=== PATIENT | female | born 1990 | race Caucasian/White ===

== ENCOUNTER 2016-05-07 20:23 | Emergency (ER) | payer OTHER ==
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
--- NOTE | 2016-05-07 21:21 | XR ---
EXAMINATION TYPE: XR lumbosacral spine min 4V DATE OF EXAM: 05/07/2016 9:03 PM COMPARISON: None HISTORY: Low back pain TECHNIQUE: 5 views FINDINGS: The lumbar vertebra have normal spacing and alignment. Posterior elements are intact. Sacro iliac joints are normal. IMPRESSION: Normal lumbar spine.
[2016-05-07] MEDS ORDERED: HYDROcodone/APAP 5-325MG 1 EACH TAB PO STA (21:28)
[2016-05-07 21:47] VITALS: BP 126/66; PULSE 82; RESP 16; TEMP 98
== END 2016-05-07 21:47 | disposition home or self-care (01) ==
LOC: EC 20:23
DX: S09.90XA Unspecified injury of head, initial encounter (principal); S79.922A Unspecified injury of left thigh, initial encounter; M54.2 Cervicalgia; S49.92XA Unspecified injury of left shoulder and upper arm, initial encounter; S39.92XA Unspecified injury of lower back, initial encounter; R51 Headache; E03.9 Hypothyroidism, unspecified; F17.200 Nicotine dependence, unspecified, uncomplicated; F32.9 Major depressive disorder, single episode, unspecified; Z88.0 Allergy status to penicillin; Z88.1 Allergy status to other antibiotic agents; F41.9 Anxiety disorder, unspecified; Z79.899 Other long term (current) drug therapy; Y92.410 Unspecified street and highway as the place of occurrence of the external cause; V47.5XXA Car driver injured in collision with fixed or stationary object in traffic accident, initial encounter
CPT/HCPCS: 70450; 72110; 72125; 99284

== ENCOUNTER → 2017-07-09 | Outpatient (CLI) | payer OTHER ==
--- NOTE | 2017-07-10 09:10 | US ---
EXAMINATION TYPE: US thyroid st tissue head/neck DATE OF EXAM: 07/09/2017 COMPARISON: NONE CLINICAL HISTORY: E03.9 Hyperthyroidism. Hyperthyroidism GLAND SIZE: Right Lobe: 4.7 x 1.4 x 1.8 cm Overall Parenchyma: heterogenous Left Lobe: 4.4 x 1.3 x 1.5 cm Overall Parenchyma: heterogeneous Isthmus Thickness: 0.4 cm NODULES RIGHT: # of nodules measured on right: 0 LEFT: # of nodules measured on left: 0 ISTHMUS: # of nodules measured in the isthmus: 0 Bilateral neck scanned, left neck: wnl, right neck: 2.6 x 0.4 x 1.6cm hypoechoic vascular structure, possible lymph node. Diffusely heterogeneous thyroid without any definite well defined nodules seen at this time. IMPRESSION: Correlate for thyroiditis.
== END | disposition home or self-care (01) ==
LOC: RADUSWWP 14:59
PROVIDERS: ATTEND Family Medicine
DX: E03.9 Hypothyroidism, unspecified (principal); Z88.0 Allergy status to penicillin; Z88.1 Allergy status to other antibiotic agents; Z88.8 Allergy status to other drugs, medicaments and biological substances
CPT/HCPCS: 76536

== ENCOUNTER 2019-06-24 09:04 | Emergency (ER) | payer OTHER ==
[2019-06-24 09:38] VITALS: BP 113/73; PULSE 69; RESP 16; TEMP 98.5
[2019-06-24] MEDS ORDERED: CYCLOBENZAPRINE 5 MG TAB PO STA (09:48)
[2019-06-24] MEDS ORDERED: HYDROcodone/APAP 5-325MG 1 EACH TAB PO STA (09:48)
[2019-06-24] MEDS ORDERED: ACET/COD 300 MG/30 MG STARTER PACK 6 TAB BTL PO STA (09:48)
--- NOTE | 2019-06-24 09:49 | ED ---
Neck Injury/Pain HPI - General Chief Complaint: Neck Pain/Injury Stated Complaint: Neck stiffness Time Seen by Provider: 06/24/19 09:36 Source: patient, RN notes reviewed Mode of arrival: ambulatory Limitations: no limitations - History of Present Illness Initial Comments: 28-year-old female presents emergency Department chief complaint left-sided neck pain. Patient states she thought she slept wrong and woke up this pain. Patient states pain is worse when she twists or turns away. Patient states she has not had any weakness or paresthesias of her upper extremity no chest pain or shortness breath. Patient has no relief with massage this morning. She did not apply any heat on it. Patient offers no other complaints. Denies trauma. - Related Data Home Medications Medication Instructions Recorded Confirmed Sertraline [Zoloft] 75 mg PO DAILY 10/25/15 05/07/16 Acetaminophen Tab [Tylenol Tab] 500 mg PO Q6H PRN 05/07/16 05/07/16 Albuterol Inhaler [Ventolin Hfa 2 puff INHALATION RT-Q6H PRN 05/07/16 05/07/16 Inhaler] Ibuprofen [Motrin] 800 mg PO Q8HR PRN 05/07/16 05/07/16 Levothyroxine Sodium [Synthroid] 50 mcg PO DAILY 05/07/16 05/07/16 Previous Rx's Medication Instructions Recorded Hydrocodone/Acetaminophen [[place] 1 tab PO Q6HR PRN #15 tab 05/07/16 5-325] Cyclobenzaprine [Flexeril] 10 mg PO TID PRN #15 tab 06/24/19 Ibuprofen [Motrin] 600 mg PO Q8HR PRN #20 tab 06/24/19 Allergies Allergy/AdvReac Type Severity Reaction Status Date / Time ciprofloxacin [From Cipro] Allergy Severe Rash/Hives Verified 06/24/19 09:18 Penicillins Allergy Severe Anaphylaxis Verified 06/24/19 09:18 Review of Systems ROS Statement: Those systems with pertinent positive or pertinent negative responses have been documented in the HPI. ROS Other: All systems not noted in ROS Statement are negative. Past Medical History Past Medical History: GERD/Reflux Additional Past Medical History / Comment(s): Hypothroidism, patient had benign sinus tachycardia evaluated by cardiology during past History of Any Multi-Drug Resistant Organisms: None Reported Past Surgical History: Section Additional Past Surgical History / Comment(s): Dand C 2010 Past Anesthesia/Blood Transfusion Reactions: No Reported Reaction Past Psychological History: Anxiety, Depression Smoking Status: Former smoker Past Alcohol Use History: None Reported Past Drug Use History: None Reported - Past Family History Mother Additional Family Medical History / Comment(s): Type II Diabetes General Exam Limitations: no limitations General appearance: alert, in no apparent distress Head exam: Present: atraumatic, normocephalic, normal inspection Eye exam: Present: normal appearance, PERRL, EOMI. Absent: scleral icterus, conjunctival injection, periorbital swelling ENT exam: Present: normal exam, normal oropharynx, mucous membranes moist, TM's normal bilaterally, normal external ear exam Neck exam: Present: normal inspection, tenderness (Over the left trapezius, cervical paraspinal), full ROM (Patient has full range of motion but reports significant pain on the left side of her neck). Absent: meningismus, lymphadenopathy Respiratory exam: Present: normal lung sounds bilaterally. Absent: respiratory distress, wheezes, rales, rhonchi, stridor Cardiovascular Exam: Present: regular rate, normal rhythm, normal heart sounds. Absent: systolic murmur, diastolic murmur, rubs, gallop, clicks Course Vital Signs 06/24/19 09:15 Temperature 98.5 F Pulse Rate 69 Respiratory 16 Rate Blood Pressure 113/73 O2 Sat by Pulse 98 Oximetry Medical Decision Making - Medical Decision Making Patient has cervical paraspinal muscle spasm, tenderness. This is related to spasm or torticollis. Patient will provide pain control anti-inflammatories. Return parameters were discussed she has neurovascular intact. Disposition Clinical Impression: Spastic torticollis Disposition: HOME SELF-CARE Condition: Stable Instructions (If sedation given, give patient instructions): Acute Neck Pain (E D) Additional Instructions: Please return to the Emergency Department if symptoms worsen or any other concerns. Prescriptions: Cyclobenzaprine [Flexeril] 10 mg PO TID PRN #15 tab PRN Reason: Muscle Spasm Ibuprofen [Motrin] 600 mg PO Q8HR PRN #20 tab PRN Reason: Pain Is patient prescribed a controlled substance at d/c from ED?: No Referrals: Shaji Gonzalez MD [Primary Care Provider] - 1-2 days Time of Disposition: 09:49
== END 2019-06-24 10:10 | disposition home or self-care (01) ==
LOC: EC 09:04
DX: M43.6 Torticollis (principal); F41.9 Anxiety disorder, unspecified; E03.9 Hypothyroidism, unspecified; F32.9 Major depressive disorder, single episode, unspecified; Z79.890 Hormone replacement therapy; Z79.899 Other long term (current) drug therapy; Z88.0 Allergy status to penicillin; Z88.1 Allergy status to other antibiotic agents; Z87.891 Personal history of nicotine dependence
CPT/HCPCS: 99283

== ENCOUNTER → 2019-08-18 | Outpatient (CLI) | payer OTHER ==
--- NOTE | 2019-08-19 10:40 | USB ---
Reason for exam: clinical finding. History: Taking hormonal contraceptives for 3 years beginning at age 25. Indicated problem(s): lump or thickening in the right breast. Physical Findings: Nurse Summary: 3cm nodule in the right breast at 9 o'clock (nurse mj). US Breast RT Technologist: Morelia Campo Right complete breast ultrasound includes all four quadrants, the retroareolar region and axilla. Finding demonstrates a 4.5 x 4.1 x 1.7cm irregular, spiculated, mixed, vascular lesion at 9 o'clock, prominent right axillary nodes, resolving phlegmon of prior abscess versus solid neoplasm. Biopsy recommended. Mammogram at this time was deferred until pathology results due to Covid pandemic. If pathology of infection no mammogram needed. If neoplasm mammogram will be performed. These results were verbally communicated with the patient and result sheet given to the patient on 08/18/19. ASSESSMENT: Suspicious, BI-RAD 4 RECOMMENDATION: Ultrasound core biopsy of the right breast. Called Dr. Gonzalez's office with mammographic findings and has scheduled an appointment for the patient for 09/02/19 at 12:[address] Adrian. Biopsy scheduled for 08/25/19 at 11:00. PRELIMINARY REPORT CALLED AND FAXED TO DR. ADRIAN ON 08/18/19.
== END | disposition home or self-care (01) ==
LOC: RADMAMWWP 08:38
PROVIDERS: ATTEND Family Medicine
DX: N63.10 Unspecified lump in the right breast, unspecified quadrant (principal)

== ENCOUNTER → 2019-08-25 | Day surgery (SDC) | payer OTHER ==
[2019-08-25 10:43] VITALS: RESP 16
[2019-08-25 11:48] VITALS: BP 103/67; PULSE 76; TEMP 98.3
--- NOTE | 2019-08-25 11:56 | USB ---
EXAMINATION TYPE: US biopsy breast VAD RT DATE OF EXAM: 08/25/2019 CLINICAL HISTORY: R92.8 ABNORMAL MAMMOGRAM. TECHNIQUE: Ultrasound guided core biopsy of right breast. COMPARISON: Right breast ultrasound dated 08/18/2019 FINDINGS: The procedure of ultrasound guided core biopsy was explained to the patient. Benefits, alt ernatives, and risks were discussed. An informed consent was then obtained. Preprocedural timeout w as performed. The patient was placed in supine positioning for imaging and for the procedure. The overlying skin w as prepped and draped in usual sterile fashion. 10 cc of 1% lidocaine was used as anesthetic into the skin and subcutaneous tissue up to the 4.5 cm irregular mass at the 9:00 position in the right breas t. Under ultrasound guidance, a 12-gauge vacuum assisted biopsy gun device was used to obtain 7 core [address]es. Following this, a coil-shaped biopsy marker was left at the site of biopsy. No postprocedure mammogram was performed given the patient's age, COVID pandemic, and the possibility of infectious et iology of the mass. The patient tolerated the procedure well without any immediate complication. The patient was kept in the radiology department for short stay after the procedure and then discharged home in stable condi tion. IMPRESSION: Successful, uncomplicated ultrasound guided core biopsy and irregular mass at the 9:00 po sition in the right breast, full pathology results to follow. The mass did appear to contain less flu id than on the original exam of 08/10/2019, however biopsy was performed to exclude lobular or inflamm atory breast cancer given the focal palpable abnormality and firmness of the mass. Axillary biopsy wa s deferred. If pathology is positive biopsy of the axillary lymph node could be considered.
== END ==
LOC: RADUSWWP 10:12
PROVIDERS: ATTEND Surgery
DX: N60.31 Fibrosclerosis of right breast (principal); N61.0 Mastitis without abscess; Z11.59 Encounter for screening for other viral diseases
CPT/HCPCS: 88305; 87635; 19083; A4648; J2001

== ENCOUNTER → 2020-02-29 | Outpatient (CLI) | payer OTHER ==
--- NOTE | 2020-02-29 09:56 | USB ---
Reason for exam: follow-up at short interval from prior study. History: Benign US biopsy breast VAD RT of the right breast, August 25, 2019. Taking hormonal contraceptives for 3 years beginning at age 25. Physical Findings: Nurse did not find any significant physical abnormalities on exam. US Breast Limited RT Right limited breast ultrasound including focal area of concern, retroareolar and axilla demonstrates no cystic or solid lesion seen. These results were verbally communicated with the patient and result sheet given to the patient on 02/29/20. ASSESSMENT: Negative, BI-RAD 1 RECOMMENDATION: Routine screening mammogram of both breasts at age 42.
== END | disposition home or self-care (01) ==
LOC: RADUSWWP 08:44
PROVIDERS: ATTEND Family Medicine
DX: R92.8 Other abnormal and inconclusive findings on diagnostic imaging of breast (principal)

== ENCOUNTER 2020-06-25 19:42 | Inpatient (IN) | payer MEDICAID, OTHER ==
--- NOTE | 2020-06-25 19:59 | ED ---
Psych HPI - General Chief Complaint: Psychiatric Symptoms Stated Complaint: Mental Health Time Seen by Provider: 06/25/20 19:51 Source: patient, RN notes reviewed Mode of arrival: ambulatory - History of Present Illness Initial Comments: Patient is a 29-year-old female that presents to the emergency department with her mother complaining of suicidal ideations with potential plans. She did note that she called [facility] and instructed to emergency department to get evaluated. Patient was very short words appeared to be in inner turmoil in distress. She noted that lately she has been having more suicidal thoughts and more plans. She did not want to discuss her plans at that time and wants to talk to the psych nurse. She denied any other issues or pain area and she denied any chest pain shortness of breath headache nausea vomiting diarrhea constipation fever fatigue chills. - Related Data Home Medications Medication Instructions Recorded Confirmed Acetaminophen Tab [Tylenol] 1,000 mg PO DAILY PRN 06/25/20 06/25/20 Allergies Allergy/AdvReac Type Severity Reaction Status Date / Time ciprofloxacin [From Cipro] Allergy Severe Rash/Hives Verified 06/25/20 21:59 Penicillins Allergy Severe Anaphylaxis Verified 06/25/20 21:59 Review of Systems ROS Statement: Those systems with pertinent positive or pertinent negative responses have been documented in the HPI. ROS Other: All systems not noted in ROS Statement are negative. Past Medical History Past Medical History: GERD/Reflux Additional Past Medical History / Comment(s): Hypothroidism, patient had benign sinus tachycardia evaluated by cardiology during past , History of Any Multi-Drug Resistant Organisms: None Reported Past Surgical History: Section Additional Past Surgical History / Comment(s): D-and C 2010 Past Anesthesia/Blood Transfusion Reactions: No Reported Reaction Past Psychological History: Anxiety, Depression Smoking Status: Current every day smoker Past Alcohol Use History: None Reported Past Drug Use History: Marijuana - Past Family History Mother Additional Family Medical History / Comment(s): Type II Diabetes General Exam Limitations: no limitations General appearance: alert, in distress Head exam: Present: atraumatic, normocephalic, normal inspection Eye exam: Present: normal appearance, PERRL, EOMI. Absent: scleral icterus, conjunctival injection, periorbital swelling Neck exam: Present: normal inspection. Absent: tenderness, meningismus, lymphadenopathy Respiratory exam: Present: normal lung sounds bilaterally. Absent: respiratory distress, wheezes, rales, rhonchi, stridor Cardiovascular Exam: Present: regular rate, normal rhythm, normal heart sounds. Absent: systolic murmur, diastolic murmur, rubs, gallop, clicks GI/Abdominal exam: Present: soft, normal bowel sounds. Absent: distended, tenderness, guarding, rebound, rigid Extremities exam: Present: normal inspection, full ROM, normal capillary refill. Absent: tenderness, pedal edema, joint swelling, calf tenderness Back exam: Present: normal inspection Neurological exam: Present: alert, oriented X3, CN II-XII intact Psychiatric exam: Present: normal affect, depressed, suicidal ideation (With pl an) Skin exam: Present: warm, dry, intact, normal color. Absent: rash Course Vital Signs 06/25/20 19:43 Temperature 99.0 F Pulse Rate 112 H Respiratory 18 Rate Blood Pressure 131/83 O2 Sat by Pulse 98 Oximetry Medical Decision Making - Medical Decision Making 29-year-old female presents immersed with suicidal ideations and possible plan. Labs ordered. Consult EPS. Breath alcohol level came back negative, patient is cleared for psych consult. Case discussed with Dr. Silverio - Lab Data Lab Results 06/25/20 06/25/20 Range/Units 20:10 20:10 Urine HCG, Qual Not Detected (Not Detectd) Urine Opiates Screen Not Detected (NotDetected) Ur Oxycodone Screen Not Detected (NotDetected) Urine Methadone Screen Not Detected (NotDetected) Ur Propoxyphene Screen Not Detected (NotDetected) Ur Barbiturates Screen Not Detected (NotDetected) U Tricyclic Antidepress Not Detected (NotDetected) Ur Phencyclidine Scrn Not Detected (NotDetected) Ur Amphetamines Screen Not Detected (NotDetected) U Methamphetamines Scrn Not Detected (NotDetected) U Benzodiazepines Scrn Detected H (NotDetected) Urine Cocaine Screen Not Detected (NotDetected) U Marijuana (THC) Screen Detected H (NotDetected) Disposition Clinical Impression: Suicidal ideation Disposition: ADMITTED IP TO THIS [facility] Condition: Stable Is patient prescribed a controlled substance at d/c from ED?: No Referrals: Shaji Gonzalez MD [Primary Care Provider] - 1-2 days Time of Disposition: 22:28
[2020-06-25 21:14] LABS: Amphetamine Screen,Urine Not Detected (NotDetected); Barbiturate Screen,Urine Not Detected (NotDetected); Benzodiazepines Screen,Urine Detected (NotDetected); Cocaine Screen,Urine Not Detected (NotDetected); Methadone Screen, Urine Not Detected (NotDetected); Opiate Screen,Urine Not Detected (NotDetected); Oxycodone Screen, Urine Not Detected (NotDetected); Phencyclidine Screen,Urine Not Detected (NotDetected); Tricyclic Antidepressant,Urine Not Detected (NotDetected); Urn Cannabinoid Scrn Detected (NotDetected)
[2020-06-25] MEDS ORDERED: ACETAMINOPHEN TAB 500 MG TAB PO STA (22:27)
[2020-06-26] MEDS ORDERED: MAGNESIUM HYDROXIDE 2,400 MG/10 ML CUP PO PRN (03:08)
[2020-06-26] MEDS ORDERED: LORazepam 1 MG TAB PO PRN (03:08)
[2020-06-26] MEDS ORDERED: LORazepam 2 MG/ML INJ IM PRN (03:13)
[2020-06-26] MEDS ORDERED: HALOPERIDOL LACTATE 5 MG/ML 1 ML VIAL IM PRN (03:14)
[2020-06-26] MEDS ORDERED: MAG HYDROX/AL HYDROX/SIMETH 30 ML CUP PO PRN (04:00)
[2020-06-26] MEDS ORDERED: haloperidoL 5 MG TAB PO PRN (04:00)
[2020-06-26] MEDS: NICOTINE 14MG/24HR PATCH TRANSDERM SCH (09:22)
--- NOTE | 2020-06-26 12:20 | P.HP ---
Psychiatric H&P - . H&P Date: 06/26/20 History & Physical: IDENTIFYING DATA: The patient is a 29-year-old single female admitted psychiatric unit voluntarily with complaints of increased depression and suicidal ideation. HISTORY OF PRESENT ILLNESS: I reviewed the medical record and interviewed the patient. She described a history of depression that has been present intermittently since she was an adolescent. She became acutely distressed the week prior to admission following a visit by a CPS worker for a report that she had attempted suicide. She vehemently denied that she had attempted suicide but admitted that she has had occasional thoughts of suicide. The CPS worker recommended that she contact [facility] for outpatient mental health services. She called the mental health and during the telephone intake on Saturday prior to admission she became acutely distressed. The family day care worker recommended that she presented to the hospital for treatment. She acknowledged that she has felt depressed and was having thoughts of suicide prior to the visit by CPS. In retrospect she now recognizes that the depression was worse than she had thought. She described, in addition to depressed feelings, anhedonia, anergy, poor appetite, persistent and uncontrolled worry and impaired sleep. She denied that she had suicidal intent or made suicidal plan. She denied a history of suicide attempts or gestures. She attributes depression to multiple social issues. 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 She lost her job just prior to the beginning of the pandemic and has been housebound with her 2 young children since. She receives child support from her ex-boyfriend for only one of his two children. She feels isolated and alone. She denied a history of elevated mood or sustained irritability suggestive of faiza or hypomania. She described fluctuating levels of anxiety at times overwhelming and uncontrollable. She denied experiencing periods of increased anxiety suggestive of panic attack. She denied obsessions or compulsions. She denied experiencing such psychotic symptoms as hallucinations, paranoia or confusion. She smokes marijuana but denied use of drugs or alcohol. She denied that friends and family have complained to her about her alcohol or drug use. PAST PSYCHIATRIC HISTORY: She has no prior psychiatric hospitalizations. Her mother referred her for mental health services when she was in the adolescent following her parents divorce. She met with a counselor briefly but felt she did not benefit from treatment because she was "too young." Her primary care provider prescribed several antidepressants including Celexa, Lexapro, Zoloft and Wellbutrin. PAST MEDICAL HISTORY: She has no major medical problems. ALLERGIES: Ciprofloxacin, penicillins SUBSTANCE USE HISTORY: She denied a history of substance use problems. She has never been a substance abuse treatment program. FAMILY PSYCHIATRIC/SUBSTANCE USE HISTORY: Her mother has a history of depression treated with antidepressants. LEGAL HISTORY: Denied SOCIAL HISTORY: She is more intact family. Her parents when she was in eighth or ninth grade. She from her long-term boyfriend. They have 2 children together. She is currently unemployed and receives child support payments from her ex are 1 to children. She lives in subsidized housing and has assistance with utilities. MENTAL STATUS EXAM: She presented as a casually groomed young female with red hair. She made eye contact and attended the interview. She had no distinction features are prominent physical abnormalities. She had a distressed facial expression cried intermittently throughout the interview. She is alert and oriented to person, place and time. She had slight psychomotor retardation but no abnormal involuntary movements. Her speech was spontaneous and consistent with her mood. She had no articulation difficulties. Her affect was depressed and not reactive. She denied current suicidal ideation or wishes. She denied homicidal ideation. She expressed depressive cognitions such as hopelessness, helplessness but denied feeling worthless. She ruminated about her social problems. She did not express ideas reference, paranoia phobias, paranoid ideation or delusions. Her thinking was abstract and associations were coherent, logical and goal directed. She denied hallucinations did not appear to responding to internal stimuli. Global impression of intellect was average. She is aware of her illness and for treatment. STRENGTHS: Good physical health, supportive family, stable housing, stable income WEAKNESSES: Chronic depression, lack of employment IMPRESSION: She is a 29-year-old single female who is a mother of 2 children. [facility] complaints of depression and suicidal ideation. She described a history of depression beginning in adolescence following divorce her parents. She he has received mental health services as an adolescent but not as an adult. He been treated with several antidepressants prescribed by her primary care provider with limited benefit. In addition to depressive symptoms she has free-floating anxiety appears no evidence of psychosis and no history of faiza or hypomania. She should be treated inpatient basis with combination of psychopharmacology and multimodal therapy. PRINCIPLE DIAGNOSIS: Major depressive disorder severe without psychotic features, rule out resistant depressive disorder, cannabis use RECOMMENDATION: Admit to the psychiatric unit. Suicide precautions. Consult medicine for initial physical exam and medical history. shut off worker completed initial psychosocial assessment and coordinate discharge and aftercare. Begin Effexor XR 37.5 mg daily and titrated according to clinical response and tolera nce. Abilify 1 mg at bedtime and titrated according to clinical response and tolerance for augmentation of the antidepressant. Encourage participation in therapeutic groups and activities. Evaluate clinical status response to treatment daily basis. Refer for outpatient mental health services including individual psychotherapy after discharge. Allergies Allergy/AdvReac Type Severity Reaction Status Date / Time ciprofloxacin [From Cipro] Allergy Severe Rash/Hives Verified 06/25/20 21:59 Penicillins Allergy Severe Anaphylaxis Verified 06/25/20 21:59 Vital Signs Temp 97.5 F L 06/26/20 04:13 Pulse 73 06/26/20 04:13 Resp 18 06/26/20 04:13 BP 106/69 06/26/20 04:13 Pulse Ox 100 06/26/20 04:13 Intake & Output 06/25/20 06/26/20 06/26/20 18:59 06:59 18:59 Weight 57.153 kg 57.6 kg Laboratory Last Values Urine HCG, Qual Not Detected (Not Detectd) 06/25/20 20:10 Urine Opiates Screen Not Detected (NotDetected) 06/25/20 20:10 Ur Oxycodone Screen Not Detected (NotDetected) 06/25/20 20:10 Urine Methadone Screen Not Detected (NotDetected) 06/25/20 20:10 Ur Propoxyphene Screen Not Detected (NotDetected) 06/25/20 20:10 Ur Barbiturates Screen Not Detected (NotDetected) 06/25/20 20:10 U Tricyclic Antidepress Not Detected (NotDetected) 06/25/20 20:10 Ur Phencyclidine Scrn Not Detected (NotDetected) 06/25/20 20:10 Ur Amphetamines Screen Not Detected (NotDetected) 06/25/20 20:10 U Methamphetamines Scrn Not Detected (NotDetected) 06/25/20 20:10 U Benzodiazepines Scrn Detected (NotDetected) H 06/25/20 20:10 Urine Cocaine Screen Not Detected (NotDetected) 06/25/20 20:10 U Marijuana (THC) Screen Detected (NotDetected) H 06/25/20 20:10 Coronavirus (PCR) Not Detected (Not Detectd) 06/26/20 02:41 06/26/20 12:04
[2020-06-26] MEDS: VENLAFAXINE HCL ER 37.5 MG CAP PO SCH (12:35)
[2020-06-26 16:46] LABS: Glucose,Whole Blood 87 mg/dL (75-99)
[2020-06-26] MEDS ORDERED: ARIPiprazole 2 MG TAB PO SCH (21:00)
[2020-06-27 06:34] VITALS: TEMP 98.2
[2020-06-27 07:42] LABS: Basophils # (A) 0.1 k/uL (0-0.2); Basophils % (A) 1 %; Eosinophils # (A) 0.2 k/uL (0-0.7); Eosinophils % (A) 3 %; HCT 45.7 % (34.0-46.0); HGB 15.1 gm/dL (11.4-16.0); Lymphocytes # (A) 2.8 k/uL (1.0-4.8); Lymphocytes % (A) 38 %; MCH 32.7 pg (25.0-35.0); MCHC 33.1 g/dL (31.0-37.0); Mean Platelet Volume 7.2; Monocytes # (A) 0.3 k/uL (0-1.0); Monocytes % (A) 4 %; Neutrophils # (A) 3.8 k/uL (1.3-7.7); Neutrophils % (A) 52 %; Platelet Count 353 k/uL (150-450); RBC 4.62 m/uL (3.80-5.40); WBC 7.4 k/uL (3.8-10.6)
[2020-06-27 08:02] LABS: ALT 9 U/L (4-34); AST 18 U/L (14-36); African American GFR (CKD) >90 (>60 ml/min/1.73 sqM); Albumin 4.3 g/dL (3.5-5.0); Alkaline Phosphatase 57 U/L (38-126); Anion Gap 9 mmol/L; Blood Urea Nitrogen 14 mg/dL (7-17); Calcium 9.7 mg/dL (8.4-10.2); Carbon Dioxide 30 mmol/L (22-30); Chloride 101 mmol/L (98-107); Cholesterol 145 mg/dL (<200); Glucose 96 mg/dL (74-99); HDL Cholesterol 31 mg/dL (40-60); LDL Cholesterol,Calculated 90 mg/dL (0-99); Non-African American GFR(CKD) >90 (>60 ml/min/1.73 sqM); Potassium 4.6 mmol/L (3.5-5.1); Sodium 140 mmol/L (137-145); Total Bilirubin 0.8 mg/dL (0.2-1.3); Triglycerides 118 mg/dL (<150)
[2020-06-27] MEDS: NICOTINE 14MG/24HR PATCH TRANSDERM SCH (09:10)
[2020-06-27] MEDS: ACETAMINOPHEN TAB 325 MG TAB PO PRN (09:11)
[2020-06-27] MEDS: VENLAFAXINE HCL ER 37.5 MG CAP PO SCH (09:11)
[2020-06-27] MEDS ORDERED: ONDANSETRON 4 MG TAB PO PRN (11:51)
--- NOTE | 2020-06-27 11:56 | P.PN ---
Progress Note - Text Progress Note Date: 06/27/20 Interval History: Patient was seen taking part in group today interacting with other patients and was directable and agreeable to speak with remote mortgage underwriter in the office. Patient appeared to be fairly cooperative the remote mortgage underwriter during conversation. She spoke about the reasons for coming in the hospital as she was feeling depressed and having suicidal thoughts however she states that "somebody called CPS on me". She states that whoever called CPS lied about her situation and states that she had never tried to kill herself. She claims than today her mood has been gradually improving however states that she is continuing to have anxiety during the day. She states that she did not sleep well last night approximately 3-4 hours. She states that she has been having an improvement in her appetite. She states that she misses her children. She claims that she has been trying to "groups and participated this as she can. She states that she also does have some nausea however does not know when this started. She was asking about possibly having Zofran today. She claims that she has not had a bowel movement since and was requesting a stool softener. At this time patient denies any suicidal or homical ideations, intent or plan. Patient denies any auditory, visual hallucinations and denies any paranoia or delusions. Patient denies any side effects from the medications and has been compliant with meds. Mental Status Exam: General Appearance: Patient appears to be short in stature, stated age is alert, directable, and attempts to be cooperative. Improving hygiene and grooming. Behavior: Patient is calmly seated without any agitated behavior. Speech: Patient's speech is fluent and nonpressured. Soft tone of voice. Mood/Affect: Mood is depressed and anxious however improving mildly, affect is congruent and constricted. Suicidality/Homicidality: Patient denies having any suicidal or homicidal ideation intent or plan. Perceptions: Patient denies any visual hallucinations and denies any auditory hallucinations Though content/process: There is no evidence of any delusional thought content and thought process is linear and goal-directed. Focused on her stressors and her medications. Memory and concentration: AOX3, grossly intact for the purposes of this session Judgment and insight: Improving mildly Assessment Major depressive disorder severe without psychotic features Anxiety disorder unspecified cannabis use disorder Nicotine dependence Plan: -Patient continues to meet criteria for inpatient psychiatric admission for symptom stabilization and safety. Patient has signed adult voluntary form and medication consent and was placed in patient's chart. -Medications: Increased Effexor to 75 mg daily for mood/anxiety. Discontinued Abilify and started patient on trazodone 25 mg daily at bedtime for insomnia/mood. -Added stool softener and Zofran when necessary. -When necessary Ativan and Haldol for agitation/aggression. -NRT - nicotine patch -SW on board for discharge planning. Encouraged the patient to participate in milieu. Likely discharge back home and one to 2 days.
[2020-06-27] MEDS: SENNOSIDES-DOCUSATE SODIUM 1 EACH TAB PO SCH (13:19)
[2020-06-27 18:04] LABS: Amorphous Sediment,Urine Occasional /hpf; Appearance,Urine Turbid (Clear); Bacteria,Urine Rare /hpf; Bilirubin,Urine Negative (Negative); Blood,Urine Negative (Negative); Color,Urine Yellow; Glucose,Urine (UA) Negative (Negative); Ketones,Urine Negative (Negative); Leukocyte Esterase,Urine Trace (Negative); Mucus,Urine Rare /hpf; Nitrite,Urine Negative (Negative); Protein,Urine Negative (Negative); Squamous Epithelial Cell,Urine 4 /hpf (0-4); Urobilinogen,Urine <2.0 mg/dL (<2.0); WBC,Urine 3 /hpf (0-5)
[2020-06-27] MEDS: traZODone HCL 50 MG TAB PO SCH (21:01)
--- NOTE | 2020-06-27 21:27 | CONS ---
CONSULTATION CHIEF COMPLAINT: Major depression. HISTORY OF PRESENT ILLNESS: This lady presented herself to the emergency room with major depression fearful that she would hurt herself. She has been having some nausea, but otherwise is doing well and she is generally in medically good condition. REVIEW OF SYSTEMS: She denies any headaches, neurologic problems, difficulty with vision, hearing, chest pain, shortness of breath, abdominal pain, hematemesis, melena, hematochezia, jaundice, renal failure, hematuria, dysuria, frequency, urgency, diabetes, etc. Past medical history, family history, personal and social histories are otherwise unremarkable and noncontributory. She has a history of vitamin D deficiency, anxiety, hypothyroidism, decreased libido and depression. She has not currently been taking any medication. She is ALLERGIC TO CIPRO AND PENICILLIN. She does smoke. She apparently is not involved in any drug abuse. PHYSICAL EXAMINATION: Blood pressure is 115/70 with a pulse of 59, respirations 34 and she is afebrile. In general she appeared to be slender, well developed, well nourished, in no acute distress. Skin color is normal. Skin is warm, dry. Lymph nodes were not enlarged. She did have a depressed affect. Chest is clear to auscultation and percussion. Cardiac exam is normal. Abdomen is soft, nontender. Extremities are normal. Neurologically she is intact IMPRESSION: She is admitted to the hospital with diagnosis of: Major depression. PLAN: Proceed with psychiatric evaluation and care. MMODL / IJN: [id number] /
[2020-06-28 07:15] VITALS: BP 120/59; PULSE 73; RESP 17
[2020-06-28] MEDS: NICOTINE 14MG/24HR PATCH TRANSDERM SCH (08:56)
[2020-06-28] MEDS: VENLAFAXINE HCL ER 75 MG CAP PO SCH (08:57)
[2020-06-28] MEDS: SENNOSIDES-DOCUSATE SODIUM 1 EACH TAB PO SCH ×2 (08:57→20:53)
--- NOTE | 2020-06-28 09:22 | P.PN ---
Progress Note - Text Progress Note Date: 06/28/20 Interval History: Patient was seen wandering the hallways this morning and was directable and ag reeable to speak with telegraphic typewriter operator in the office. Patient appeared to be fairly cooperative the telegraphic typewriter operator during conversation. She claims that she was able to sleep better last night however feels mildly tired this morning. She claims that she is continuing to have constipation and has been trying to drink water and has been taking the Senokot. She claims that her mood and anxiety has been gradually improving well on the unit. She states that she feels the Effexor has been making a difference" in the way that I talk to people". She states that she has been having an improvement in her appetite. She claims that she has been trying to groups and participate as be as she can. At this time patient denies any suicidal or homical ideations, intent or plan. Patient denies any auditory, visual hallucinations and denies any paranoia or delusions. Patient denies any side effects from the medications and has been compliant with meds. Mental Status Exam: General Appearance: Patient appears to be short in stature, stated age is alert, directable, and attempts to be cooperative. Improving hygiene and grooming. Behavior: Patient is calmly seated without any agitated behavior. Speech: Patient's speech is fluent and nonpressured. Soft tone of voice. Mood/Affect: Mood is depressed and anxious, improving mildly, affect is congruent and constricted. Suicidality/Homicidality: Patient denies having any suicidal or homicidal ideation intent or plan. Perceptions: Patient denies any visual hallucinations and denies any auditory hallucinations Though content/process: There is no evidence of any delusional thought content and thought process is linear and goal-directed. Memory and concentration: AOX3, grossly intact for the purposes of this session Judgment and insight: Improving mildly Assessment Major depressive disorder severe without psychotic features Anxiety disorder unspecified cannabis use disorder Nicotine dependence Plan: -Patient continues to meet criteria for inpatient psychiatric admission for symptom stabilization and safety. Patient has signed adult voluntary form and medication consent and was placed in patient's chart. -Medications: Continue with Effexor to 75 mg daily for mood/anxiety. Continue with trazodone 25 mg daily at bedtime for insomnia/mood. -Added stool softener and Zofran when necessary. Milk of magnesia today for constipation. -When necessary Ativan and Haldol for agitation/aggression. -NRT - nicotine patch -SW on board for discharge planning. Encouraged the patient to participate in milieu. Likely discharge back home tomorrow.
[2020-06-28] MEDS ORDERED: SENNOSIDES-DOCUSATE SODIUM 1 EACH TAB PO SCH (09:30)
[2020-06-28] MEDS: ACETAMINOPHEN TAB 325 MG TAB PO PRN ×2 (12:06→22:57)
[2020-06-28] MEDS: traZODone HCL 50 MG TAB PO SCH (20:52)
[2020-06-29] MEDS: SENNOSIDES-DOCUSATE SODIUM 1 EACH TAB PO SCH (08:09)
[2020-06-29] MEDS: NICOTINE 14MG/24HR PATCH TRANSDERM SCH (08:10)
[2020-06-29] MEDS: VENLAFAXINE HCL ER 75 MG CAP PO SCH (08:10)
--- NOTE | 2020-06-29 10:14 | P.DS ---
Providers Date of admission: 06/26/20 02:39 Expected date of discharge: 06/29/20 Attending physician: Delfin Melgar MD Consults: 06/26/20 03:08 Consult Physician Routine Consulting Provider: Shaji Gonzalez Consult Reason/Comments: H and P Do you want consulting provider notified?: Yes, Notify in am Primary care physician: Shaji Gonzalez - Discharge Diagnosis(es) (1) Major depressive disorder without psychotic features Current Visit: Yes Status: Acute Priority: High (2) Anxiety disorder, unspecified Current Visit: Yes Status: Acute Priority: Medium (3) Cannabis use disorder, mild, abuse Current Visit: Yes Status: Acute Priority: Low (4) Nicotine dependence Current Visit: Yes Status: Acute Priority: Low Hospital Course: Admission HPI: Admission note was completed by Dr. Chaves "The patient is a 29-year-old single female admitted psychiatric unit voluntarily with complaints of increased depression and suicidal ideation. I reviewed the medical record and interviewed the patient. She described a history of depression that has been present intermittently since she was an adolescent. She became acutely distressed the week prior to admission following a visit by a CPS worker for a report that she had attempted suicide. She vehemently denied that she had attempted suicide but admitted that she has had occasional thoughts of suicide. The CPS worker recommended that she contact community mental health for outpatient mental health services. She called the mental health and during the telephone intake on Saturday prior to admission she became acutely distressed. The green end worker recommended that she presented to the hospital for treatment. She acknowledged that she has felt depressed and was having thoughts of suicide prior to the visit by CPS. In retrospect she now recognizes that the depression was worse than she had thought. She described, in addition to depressed feelings, anhedonia, anergy, poor appetite, persistent and uncontrolled worry and impaired sleep. She denied that she had suicidal intent or made suicidal plan. She denied a history of suicide attempts or gestures. She attributes depression to multiple social issues. 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 She lost her job just prior to the beginning of the pandemic and has been housebound with her 2 young children since. She receives child support from her ex-boyfriend for only one of his two children. She feels isolated and alone. She denied a history of elevated mood or sustained irritability suggestive of faiza or hypomania. She described fluctuating levels of anxiety at times overwhelming and uncontrollable. She denied experiencing periods of increased anxiety suggestive of panic attack. She denied obsessions or compulsions. She denied experiencing such psychotic symptoms as hallucinations, paranoia or confusion. She smokes marijuana but denied use of drugs or alcohol. She denied that friends and family have complained to her about her alcohol or drug use." Hospital course: Upon admission to the unit patient was initially depressed and anxious. Patient was however directable and agreeable to commence treatment and signed adult voluntary form. Patient got along well with other patients on the unit and followed unit protocol. Patient was compliant with the medications and denied any side effects throughout hospital course. Patient was started on Effexor and titrate up the dose of 75 mg daily for mood/anxiety. Patient was also started on trazodone and titrate up to a dose of 50 mg daily at bedtime for insomnia /mood. Patient spoke of her stressors and engaged in therapy both group and individual. Patient was also seen by medical team for history and physical exam. Throughout the course of the hospitalization patient gradually improved with regards to mood, anxiety, sleep and became more future oriented with improved insight and judgment. On the day of discharge patient denied any suicidal or homicidal ideations intent or plan denied any auditory or visual hallucinations. Patient endorsed wanting to live for her children and her future. The patient denied any access to guns or weapons. Patient denied any paranoia and did not endorse any delusions. Patient does have a significant history of substance abuse and was counseled on abstaining from all substances including alcohol and marijuana. Patient was offered however declined inpatient substance-abuse rehab. Patient was also counseled on the medications and need for regular compliance and was encouraged to follow-up with their outpatient appointment for mental health and also for primary care. Prior to discharge a family meeting will be arranged by health care social worker to answer any questions and ensure safety upon discharge. Mental status exam: General Appearance: Patient appears to be stated age is alert, pleasant, and cooperative. Patient is in no acute distress and has improved hygiene and grooming Behavior: Patient is calmly seated without any agitated behavior. Speech: Patient's speech is fluent and nonpressured. Mood/Affect: Patient reports their mood is "better", affect is congruent and euthymic. Suicidality/Homicidality: Patient denies having any suicidal or homicidal ideation intent or plan. Perceptions: Patient denies any auditory or visual hallucinations. Though content/process: There is no evidence of any delusional thought content and thought process is linear and goal-directed. more future oriented Memory and concentration: AOX3, grossly intact for the purposes of this session. Can spell "WORLD" backwards correctly. Judgment and insight: improved with guarded prognosis Impression: Major depressive disorder, severe, without psychotic features Anxiety disorder unspecified Cannabis use disorder Nicotine dependence Plan: -Continue with discharge today as patient has improved and stabilized psychiatrically and is not currently an imminent threat to herself and/or others. -Continue medications: Effexor 75 mg daily for mood/anxiety, trazodone 50 mg daily at bedtime for insomnia/mood. -Patient was counseled on the need for medication compliance and appropriate follow-up at mental health and also primary care for medical issues. Patient verbalized understanding and agreed. -Social work to arrange for and conduct family meeting to ensure safety upon discharge and answer any questions/concerns. Social work also to arrange for patients follow up appointments for psychiatric care along with follow up with primary care provider. -Patient counseled on abstaining from recreational drugs and marijuana and alcohol. Was informed/educated on the adverse effects on their physical and mental health. Patient verbally agreed and understood. Patient was offered substance abuse treatment however declined at this time. -Patient was instructed to return to the hospital or seek immediate medical care if their psychiatric or medical symptoms do worsen or reoccur. Allergies Allergy/AdvReac Type Severity Reaction Status Date / Time ciprofloxacin [From Cipro] Allergy Severe Rash/Hives Verified 06/25/20 21:59 Penicillins Allergy Severe Anaphylaxis Verified 06/25/20 21:59 Laboratory Results WBC 7.4 k/uL (3.8-10.6) 06/27/20 06:59 RBC 4.62 m/uL (3.80-5.40) 06/27/20 06:59 Hgb 15.1 gm/dL (11.4-16.0) 06/27/20 06:59 Hct 45.7 % (34.0-46.0) 06/27/20 06:59 MCV 99.0 fL (80.0-100.0) 06/27/20 06:59 MCH 32.7 pg (25.0-35.0) 06/27/20 06:59 MCHC 33.1 g/dL (31.0-37.0) 06/27/20 06:59 RDW 12.0 % (11.5-15.5) 06/27/20 06:59 Plt Count 353 k/uL (150-450) 06/27/20 06:59 MPV 7.2 06/27/20 06:59 Neutrophils % 52 % 06/27/20 06:59 Lymphocytes % 38 % 06/27/20 06:59 Monocytes % 4 % 06/27/20 06:59 Eosinophils % 3 % 06/27/20 06:59 Basophils % 1 % 06/27/20 06:59 Neutrophils # 3.8 k/uL (1.3-7.7) 06/27/20 06:59 Lymphocytes # 2.8 k/uL (1.0-4.8) 06/27/20 06:59 Monocytes # 0.3 k/uL (0-1.0) 06/27/20 06:59 Eosinophils # 0.2 k/uL (0-0.7) 06/27/20 06:59 Basophils # 0.1 k/uL (0-0.2) 06/27/20 06:59 Sodium 140 mmol/L (137-145) 06/27/20 06:59 Potassium 4.6 mmol/L (3.5-5.1) 06/27/20 06:59 Chloride 101 mmol/L (98-107) 06/27/20 06:59 Carbon Dioxide 30 mmol/L (22-30) 06/27/20 06:59 Anion Gap 9 mmol/L 06/27/20 06:59 BUN 14 mg/dL (7-17) 06/27/20 06:59 Creatinine 0.69 mg/dL (0.52-1.04) 06/27/20 06:59 Est GFR (CKD-EPI)AfAm >90 (>60 ml/min/1.73 sqM) 06/27/20 06:59 Est GFR (CKD-EPI)NonAf >90 (>60 ml/min/1.73 sqM) 06/27/20 06:59 Glucose 96 mg/dL (74-99) 06/27/20 06:59 POC Glucose (mg/dL) 87 mg/dL (75-99) 06/26/20 16:44 POC Glu Bio Medical Technician ID Sharyn Gibbons 06/26/20 16:[address] Glu mg/dL 97 06/27/20 06:59 Hemoglobin A1c 5.0 % (4.0-6.0) 06/27/20 06:59 Calcium 9.7 mg/dL (8.4-10.2) 06/27/20 06:59 Total Bilirubin 0.8 mg/dL (0.2-1.3) 06/27/20 06:59 AST 18 U/L (14-36) 06/27/20 06:59 ALT 9 U/L (4-34) 06/27/20 06:59 Alkaline Phosphatase 57 U/L (38-126) 06/27/20 06:59 Total Protein 7.0 g/dL (6.3-8.2) 06/27/20 06:59 Albumin 4.3 g/dL (3.5-5.0) 06/27/20 06:59 Triglycerides 118 mg/dL (<150) 06/27/20 06:59 Cholesterol 145 mg/dL (<200) 06/27/20 06:59 LDL Cholesterol, Calc 90 mg/dL (0-99) 06/27/20 06:59 HDL Cholesterol 31 mg/dL (40-60) L 06/27/20 06:59 TSH 2.450 mIU/L (0.465-4.680) 06/27/20 06:59 Urine Color Yellow 06/27/20 17:57 Urine Appearance Turbid (Clear) H 06/27/20 17:57 Urine pH 8.0 (5.0-8.0) 06/27/20 17:57 Ur Specific [place] 1.020 (1.001-1.035) 06/27/20 17:57 Urine Protein Negative (Negative) 06/27/20 17:57 Urine Glucose (UA) Negative (Negative) 06/27/20 17:57 Urine Ketones Negative (Negative) 06/27/20 17:57 Urine Blood Negative (Negative) 06/27/20 17:57 Urine Nitrite Negative (Negative) 06/27/20 17:57 Urine Bilirubin Negative (Negative) 06/27/20 17:57 Urine Urobilinogen <2.0 mg/dL (<2.0) 06/27/20 17:57 Ur Leukocyte Esterase Trace (Negative) H 06/27/20 17:57 Urine WBC 3 /hpf (0-5) 06/27/20 17:57 Ur Squamous Epith Cells 4 /hpf (0-4) 06/27/20 17:57 Amorphous Sediment Occasional /hpf (None) H 06/27/20 17:57 Urine Bacteria Rare /hpf (None) H 06/27/20 17:57 Urine Mucus Rare /hpf (None) H 06/27/20 17:57 Urine HCG, Qual Not Detected (Not Detectd) 06/25/20 20:10 Urine Opiates Screen Not Detected (NotDetected) 06/25/20 20:10 Ur Oxycodone Screen Not Detected (NotDetected) 06/25/20 20:10 Urine Methadone Screen Not Detected (NotDetected) 06/25/20 20:10 Ur Propoxyphene Screen Not Detected (NotDetected) 06/25/20 20:10 Ur Barbiturates Screen Not Detected (NotDetected) 06/25/20 20:10 U Tricyclic Antidepress Not Detected (NotDetected) 06/25/20 20:10 Ur Phencyclidine Scrn Not Detected (NotDetected) 06/25/20 20:10 Ur Amphetamines Screen Not Detected (NotDetected) 06/25/20 20:10 U Methamphetamines Scrn Not Detected (NotDetected) 06/25/20 20:10 U Benzodiazepines Scrn Detected (NotDetected) H 06/25/20 20:10 Urine Cocaine Screen Not Detected (NotDetected) 06/25/20 20:10 U Marijuana (THC) Screen Detected (NotDetected) H 06/25/20 20:10 Coronavirus (PCR) Not Detected (Not Detectd) 06/26/20 02:41 Vital Signs Temp 98.2 F 06/28/20 06:00 Pulse 73 06/28/20 06:00 Resp 17 06/28/20 06:00 BP 120/59 06/28/20 06:00 Pulse Ox 96 06/28/20 06:00 Patient Condition at Discharge: Stable Plan - Discharge Summary Discharge Rx Participant: No New Discharge Prescriptions: New traZODone HCL [Desyrel] 50 mg PO HS PRN 30 Days tab PRN Reason: Insomnia Venlafaxine HCl ER [Effexor XR] 75 mg PO DAILY 30 Days cap.er.24h Nicotine 14Mg/24Hr Patch [Habitrol] 1 patch TRANSDERM DAILY 14 Days patch Sennosides-Docusate Sodium [Senokot-S] 1 each PO BID 30 Days tab Acetaminophen Tab [Tylenol] 650 mg PO Q4HR PRN tab PRN Reason: Pain/Discomfort hydrOXYzine pamoate [Vistaril] 25 mg PO DAILY PRN 14 Days capsule PRN Reason: Anxiety Discontinued Acetaminophen Tab [Tylenol] 1,000 mg PO DAILY PRN PRN Reason: Migraine Headache Discharge Medication List Acetaminophen Tab [Tylenol] 650 mg PO Q4HR PRN tab 06/29/20 [Rx] Nicotine 14Mg/24Hr Patch [Habitrol] 1 patch TRANSDERM DAILY 14 Days patch 06/29/20 [Rx] Sennosides-Docusate Sodium [Senokot-S] 1 each PO BID 30 Days tab 06/29/20 [Rx] Venlafaxine HCl ER [Effexor XR] 75 mg PO DAILY 30 Days cap.er.24h 06/29/20 [Rx] hydrOXYzine pamoate [Vistaril] 25 mg PO DAILY PRN 14 Days capsule 06/29/20 [Rx] traZODone HCL [Desyrel] 50 mg PO HS PRN 30 Days tab 06/29/20 [Rx] Follow up Appointment(s)/Referral(s): [facility] [Outside] - 07/01/20 9:30 am (with [place] by phone ) Shaji Gonzalez MD [Primary Care Provider] - 1-2 days Activity/Diet/Wound Care/Special Instructions: Activity and diet as tolerated. Avoid the use of street drugs and alcohol. Take all medications as prescribed. When you are in need of refills on your medications please contact your medical provider and/or outpatient psychiatrist to have this done. Please go to scheduled outpatient appointment for aftercare treatment. If symptoms return or become worse, call the crisis line at and/or go to the nearest emergency room for evaluation. Discharge Disposition: HOME SELF-CARE
== END 2020-06-29 12:20 | disposition home or self-care (01) | DRG 885 ==
LOC: EC 19:42 → 3MHU 06-26 02:39
PROVIDERS: ADMIT Psychiatry & Neurology Psychiatry; ATTEND Psychiatry & Neurology Psychiatry
DX: F32.2 Major depressive disorder, single episode, severe without psychotic features (principal); R45.851 Suicidal ideations; Z20.822 Contact with and (suspected) exposure to COVID-19; F12.10 Cannabis abuse, uncomplicated; F17.210 Nicotine dependence, cigarettes, uncomplicated; F41.9 Anxiety disorder, unspecified; G47.00 Insomnia, unspecified; Z56.0 Unemployment, unspecified; Z79.899 Other long term (current) drug therapy; Z83.3 Family history of diabetes mellitus; Z81.8 Family history of other mental and behavioral disorders; E55.9 Vitamin D deficiency, unspecified; Z88.1 Allergy status to other antibiotic agents; Z88.0 Allergy status to penicillin; E03.9 Hypothyroidism, unspecified
CPT/HCPCS: 80053; 80061; 80306; 81001; 81025; 82075; 83036; 84443; 85025; 87635; 99285

== ENCOUNTER 2021-07-15 17:34 | Emergency (ER) | payer OTHER ==
[2021-07-15 17:47] VITALS: RESP 16
[2021-07-15] MEDS ORDERED: MORPHINE SULFATE 4 MG/ML SYRINGE IM STA (18:18)
--- NOTE | 2021-07-15 18:21 | ED ---
General Adult HPI - General Chief complaint: Recheck/Abnormal Lab/Rx Stated complaint: finger infection Time Seen by Provider: 07/15/21 17:54 Source: patient, RN notes reviewed, old records reviewed Mode of arrival: ambulatory Limitations: no limitations - History of Present Illness Initial comments: 30-year-old female presenting with pain and swelling in her right thumb. Patient's symptoms have been present for approximately one week. The pain is severe. She was seen at [facility] where she had incision and drainage but states that there was no pus obtained at that time. Worse thumb has continued to get worse over the past several days. She has been on Bactrim but continues to have worsening symptoms. She is otherwise healthy with no chronic medical conditions. No reported fevers. - Related Data Previous Rx's Medication Instructions Recorded Acetaminophen Tab [Tylenol] 650 mg PO Q4HR PRN tab 06/29/20 Nicotine 14Mg/24Hr Patch [Habitrol] 1 patch TRANSDERM DAILY 14 Days 06/29/20 patch Sennosides-Docusate Sodium 1 each PO BID 30 Days tab 06/29/20 [Senokot-S] Venlafaxine HCl ER [Effexor XR] 75 mg PO DAILY 30 Days cap.er.24h 06/29/20 hydrOXYzine pamoate [Vistaril] 25 mg PO DAILY PRN 14 Days capsule 06/29/20 traZODone HCL [Desyrel] 50 mg PO HS PRN 30 Days tab 06/29/20 Clindamycin [Cleocin] 300 mg PO TID 10 Days #60 cap 07/15/21 HYDROcodone/APAP 5-325MG [[place] 1 tab PO Q6HR PRN #12 tab 07/15/21 5-325] Ibuprofen [Motrin] 600 mg PO Q8HR PRN #24 tab 07/15/21 Sulfamethox-Tmp 800-160Mg [Bactrim 1 tab PO Q12HR #20 tab 07/15/21 DS 800-160 mg] diphenhydrAMINE [Benadryl] 25 mg PO TID PRN #21 capsule 07/15/21 Allergies Allergy/AdvReac Type Severity Reaction Status Date / Time ciprofloxacin [From Cipro] Allergy Severe Rash/Hives Verified 07/15/21 17:44 Penicillins Allergy Severe Anaphylaxis Verified 07/15/21 17:44 Review of Systems ROS Statement: Those systems with pertinent positive or pertinent negative responses have been documented in the HPI. ROS Other: All systems not noted in ROS Statement are negative. Past Medical History Past Medical History: GERD/Reflux Additional Past Medical History / Comment(s): Hypothroidism, patient had benign sinus tachycardia evaluated by cardiology during past , Migraine RIVERA's History of Any Multi-Drug Resistant Organisms: None Reported Past Surgical History: Section Additional Past Surgical History / Comment(s): D-and C 2010 Past Anesthesia/Blood Transfusion Reactions: No Reported Reaction Past Psychological History: Anxiety, Depression Smoking Status: Current every day smoker Past Alcohol Use History: None Reported Past Drug Use History: Marijuana - Past Family History Mother Additional Family Medical History / Comment(s): Type II Diabetes General Exam Limitations: no limitations General appearance: alert, in no apparent distress Head exam: Present: atraumatic, normocephalic Eye exam: Present: normal appearance, PERRL ENT exam: Present: normal exam Neck exam: Present: normal inspection, tenderness Respiratory exam: Present: normal lung sounds bilaterally. Absent: respiratory distress, wheezes Cardiovascular Exam: Present: regular rate, normal rhythm GI/Abdominal exam: Present: soft. Absent: distended, tenderness Extremities exam: Present: other (Right hand, there is a large paronychia first digit right hand with erythema tracking to the base of the thumb. There is a previously opened dorsal incision about 1.5 cm just below the eponychia and a small amount of draining pus.) Neurological exam: Present: alert, oriented X3, CN II-XII intact. Absent: motor sensory deficit Psychiatric exam: Present: normal affect, normal mood Course Vital Signs 07/15/21 07/15/21 17:44 18:32 Temperature 97.9 F 97.4 F L Pulse Rate 102 H 92 Respiratory 16 16 Rate Blood Pressure 107/74 127/80 O2 Sat by Pulse 99 98 Oximetry Procedures - Incision & Drainage Consent Obtained: verbal consent Indication: Paronychia Site: hand Anesthetic Used: lidocaine 1% Amount (mLs): 4 I&D Cleaning Method: Chloroprep Sterile Field Used?: No Scalpel Used: #11 Needle Aspiration Performed?: No Irrigation Performed?: No I&D Drainage Obtained: Pus, Blood Culture Obtained?: No Patient Tolerated Procedure: well - Nerve Block Consent Obtained: verbal consent Local Anesthetic Used: Lidocaine 1% Amount of anesthesia used: 4 Side: right Nerve Blocks: digital Procedure Successful: Yes Patient Tolerated Procedure: well Medical Decision Making - Medical Decision Making 22-year-old female with paronychia, there was a small amount of pus draining from the dorsal surface of the right thumb. A small incision was made with 11 blade scalpel to increased drainage. There was more pus obtained. This was performed after digital block. Patient does have a severe penicillin ALLERGY, clindamycin prescribed as well as pain medication. Patient will require valuation by hand surgery and she is given strict return parameters. She is instructed to soak in warm water and elevate the extremity as much as possible. She will take antibiotics as prescribed Disposition Clinical Impression: Paronychia Disposition: HOME SELF-CARE Condition: Good Instructions (If sedation given, give patient instructions): Paronychia (ED) Prescriptions: Sulfamethox-Tmp 800-160Mg [Bactrim DS 800-160 mg] 1 tab PO Q12HR #20 tab diphenhydrAMINE [Benadryl] 25 mg PO TID PRN #21 capsule PRN Reason: Allergic Reaction Clindamycin [Cleocin] 300 mg PO TID 10 Days #60 cap Ibuprofen [Motrin] 600 mg PO Q8HR PRN #24 tab PRN Reason: Pain HYDROcodone/APAP 5-325MG [Letcher 5-325] 1 tab PO Q6HR PRN #12 tab PRN Reason: Pain Is patient prescribed a controlled substance at d/c from ED?: No Referrals: Shaji Gonzalez MD [Primary Care Provider] - 1-2 days Alma Mariscal DO [Doctor of Osteopathic Medicine] - 1-2 days Time of Disposition: 18:19
[2021-07-15 18:49] VITALS: BP 127/80; PULSE 92; TEMP 97.4
== END 2021-07-15 18:48 | disposition home or self-care (01) ==
LOC: EC 17:34
DX: L03.011 Cellulitis of right finger (principal); K21.9 Gastro-esophageal reflux disease without esophagitis; E03.9 Hypothyroidism, unspecified; F41.9 Anxiety disorder, unspecified; F32.A Depression, unspecified; F17.200 Nicotine dependence, unspecified, uncomplicated; F12.90 Cannabis use, unspecified, uncomplicated; Z88.0 Allergy status to penicillin; Z88.1 Allergy status to other antibiotic agents
CPT/HCPCS: 99283; 96372; 10060; J2270

== ENCOUNTER 2021-07-17 15:55 | Inpatient (IN) | payer OTHER ==
[2021-07-17] MEDS ORDERED: MORPHINE SULFATE 4 MG/ML SYRINGE IV STA ×2 (18:23→19:54)
[2021-07-17] MEDS ORDERED: ONDANSETRON 4 MG/2 ML VIAL IVP STA (18:23)
[2021-07-17] MEDS ORDERED: VANCOMYCIN 1,250 MG in SODIUM CHLORIDE 0.9% 250 ML IVPB STA (18:24)
[2021-07-17] MEDS ORDERED: SODIUM CHLORIDE 0.9% 1,000 ML IV STA (18:24)
[2021-07-17] MEDS ORDERED: VANCOMYCIN IV PER PHARMACY 1 EACH MISC MISCELLANE PRN (18:25)
[2021-07-17 19:07] LABS: Basophils % (A) 0 %; Eosinophils # (A) 0.4 k/uL (0-0.7); Eosinophils % (A) 5 %; HCT 38.2 % (34.0-46.0); HGB 12.8 gm/dL (11.4-16.0); Lymphocytes # (A) 2.5 k/uL (1.0-4.8); Lymphocytes % (A) 29 %; MCH 32.9 pg (25.0-35.0); MCHC 33.5 g/dL (31.0-37.0); MCV 98.3 fL (80.0-100.0); Mean Platelet Volume 6.8; Monocytes # (A) 0.4 k/uL (0-1.0); Monocytes % (A) 4 %; Neutrophils # (A) 4.9 k/uL (1.3-7.7); Neutrophils % (A) 58 %; Platelet Count 460 k/uL (150-450); RBC 3.88 m/uL (3.80-5.40); WBC 8.5 k/uL (3.8-10.6)
--- NOTE | 2021-07-17 19:12 | XR ---
EXAMINATION TYPE: XR hand complete RT DATE OF EXAM: 07/17/2021 COMPARISON: NONE HISTORY: Pain TECHNIQUE: 3 view FINDINGS: There is soft tissue swelling around the distal phalanx of the right thumb. I see no fractu re nor dislocation. No focal bone destruction. Metacarpals are intact IMPRESSION: Soft tissue swelling. No fracture.
[2021-07-17] MEDS ORDERED: ACETAMINOPHEN TAB 325 MG TAB PO PRN (19:13)
[2021-07-17] MEDS ORDERED: NALOXONE 0.4 MG/ML 1 ML VIAL IV PRN (19:13)
[2021-07-17] MEDS ORDERED: ONDANSETRON 4 MG/2 ML VIAL IVP PRN (19:13)
--- NOTE | 2021-07-17 19:13 | ED ---
Extremity Problem HPI - General Chief complaint: Extremity Problem,Nontraumatic Stated complaint: R hand finger injury-Sent by Dr. Gonzalez Time Seen by Provider: 07/17/21 18:15 Source: patient Mode of arrival: ambulatory Limitations: no limitations - History of Present Illness Initial comments: This 30-year-old female presents with a complaint of an infection to her right thumb. She states that it initially started approximately a week and a half ago . She states that she had mild swelling and redness at that time. She was seen at [facility] approximately one week ago and they apparently tried to incise and drain the infection. They apparently did not obtain any purulence but her symptoms progressed significantly afterwards. She has been taking antibiotics and currently is on clindamycin. She states that her swelling and drainage has progressively worsened over the last 10 days or so. She denies any fevers or chills. She was seen in our emergency department 2 days ago and was draining at that time. Culture was taken and is positive for MRSA. She also had additional slight incision and increased purulence started d raining from the wound. She followed up with her primary care today and he relates that it is much worse. He calls prior to patient arrival relating that he would like her admitted to the hospital for further IV antibiotics and treatment. The patient does complain of moderate to significant pain. She denies any other complaints or modifying factors. She denies any possibility of . - Related Data Home Medications Medication Instructions Recorded Confirmed diphenhydrAMINE [Benadryl] 25 mg PO TID PRN 07/17/21 07/17/21 Previous Rx's Medication Instructions Recorded Clindamycin [Cleocin] 300 mg PO TID 10 Days #60 cap 07/15/21 HYDROcodone/APAP 5-325MG [[place] 1 tab PO Q6HR PRN #12 tab 07/15/21 5-325] Ibuprofen [Motrin] 600 mg PO Q8HR PRN #24 tab 07/15/21 Allergies Allergy/AdvReac Type Severity Reaction Status Date / Time ciprofloxacin [From Cipro] Allergy Severe Rash/Hives Verified 07/17/21 19:32 Penicillins Allergy Severe Anaphylaxis Verified 07/17/21 19:32 Review of Systems ROS Statement: Those systems with pertinent positive or pertinent negative responses have been documented in the HPI. ROS Other: All systems not noted in ROS Statement are negative. Past Medical History Past Medical History: No Reported History, GERD/Reflux Additional Past Medical History / Comment(s): Hypothroidism, patient had benign sinus tachycardia evaluated by cardiology during past , Migraine RIVERA's History of Any Multi-Drug Resistant Organisms: MRSA Past Surgical History: Section Additional Past Surgical History / Comment(s): Dand C 2010 Past Anesthesia/Blood Transfusion Reactions: No Reported Reaction Past Psychological History: Anxiety, Depression Smoking Status: Current every day smoker Past Alcohol Use History: None Reported Past Drug Use History: Marijuana - Past Family History Mother Additional Family Medical History / Comment(s): Type II Diabetes General Exam - General Exam Comments Initial Comments: GENERAL: The patient is well nourished and well hydrated. VITAL SIGNS: Heart rate, blood pressure, respiratory rate reviewed as recorded in nurse's notes. EYES: Pupils are round and reactive. Extraocular movements are intact. No conjunctival / lid redness or swelling. ENT: No external evidence of injury, swelling, or ecchymosis. Airway is patent. Throat is clear. NECK: Nontender. No swelling or evidence of injury. No subcutaneous emphysema. Trachea is midline. No thyroid mass. HEART: Regular rate and rhythm. Good peripheral pulses. LUNGS/CHEST: Breath sounds clear and equal bilaterally. No rales, rhonchi, or wheezes. No ecchymosis, subcutaneous emphysema, or tenderness. ABDOMEN: Abdomen soft without tenderness. No palpable masses or organomegaly. No peritoneal signs. No abdominal wall swelling or ecchymosis. EXTREMITIES: Significant tenderness and swelling noted to the right thumb. Normal muscle tone and function. No thoracolumbar tenderness. NEUROLOGIC: Sensation is grossly intact. Cranial nerve exam reveals face is symmetrical, tongue is midline, speech is clear. SKIN: Erythema and swelling noted to the right thumb. There appears to be some mild draining purulence more from the ulnar aspect distally. There is swelling over the pad of the thumb as well. No other rash or change in pigmentation noted. PSYCHIATRIC: Alert and oriented. Appropriate behavior and judgment. Limitations: no limitations Course Vital Signs 07/17/21 15:57 Temperature 97.8 F Pulse Rate 95 Respiratory 22 Rate Blood Pressure 131/91 O2 Sat by Pulse 100 Oximetry Medical Decision Making - Medical Decision Making The patient was seen and examined. Old records were reviewed from 2 days ago. She had a suspected paronychia at that time. Case is discussed with Dr. Gonzalez prior to patient arrival and shortly thereafter. It is felt as though she potentially could even have a fellon at this time. An IV is established and she is administered vancomycin. She also receives morphine and Zofran for pain and nausea intravenously. Mild IV fluid hydration is given. X-rays ordered. CBC appears to be stable at this time. CRP is slightly elevated. The x-ray of the hand does not show any osseous destruction, fracture, or foreign body but does show some soft tissue swelling of the right thumb. It is felt as though she wou ld require admission to the hospital for further treatment. She appears to have failed outpatient treatment. Infectious disease and hand surgery will be consulted. Patient will be admitted to general medical floor. Primary care would like patient admitted to the hospital for further IV and he got a treatment, infectious disease and hand surgery consultation. Patient is agreeable. Additional morphine is given for pain as well as Toradol. - Lab Data Result diagrams: 07/17/21 18:58 07/17/21 18:58 Lab Results 07/17/21 07/17/21 Range/Units 18:58 18:58 WBC 8.5 (3.8-10.6) k/uL RBC 3.88 (3.80-5.40) m/uL Hgb 12.8 (11.4-16.0) gm/dL Hct 38.2 (34.0-46.0) % MCV 98.3 (80.0-100.0) fL MCH 32.9 (25.0-35.0) pg MCHC 33.5 (31.0-37.0) g/dL RDW 13.0 (11.5-15.5) % Plt Count 460 H (150-450) k/uL MPV 6.8 Neutrophils % 58 % Lymphocytes % 29 % Monocytes % 4 % Eosinophils % 5 % Basophils % 0 % Neutrophils # 4.9 (1.3-7.7) k/uL Lymphocytes # 2.5 (1.0-4.8) k/uL Monocytes # 0.4 (0-1.0) k/uL Eosinophils # 0.4 (0-0.7) k/uL Basophils # 0.0 (0-0.2) k/uL Sodium 136 L (137-145) mmol/L Potassium 3.9 (3.5-5.1) mmol/L Chloride 100 (98-107) mmol/L Carbon Dioxide 31 H (22-30) mmol/L Anion Gap 5 mmol/L BUN 15 (7-17) mg/dL Creatinine 0.66 (0.52-1.04) mg/dL Est GFR (CKD-EPI)AfAm >90 (>60 ml/min/1.73 sqM) Est GFR (CKD-EPI)NonAf >90 (>60 ml/min/1.73 sqM) Glucose 122 H (74-99) mg/dL Calcium 8.7 (8.4-10.2) mg/dL C-Reactive Protein 2.8 H (<1.0) mg/dL Disposition Clinical Impression: Felon of digit, Paronychia, MRSA (methicillin resistant staph aureus) culture positive, Cellulitis, Failure of outpatient treatment Disposition: ADMITTED IP TO THIS HOSP Condition: Fair Is patient prescribed a controlled substance at d/c from ED?: No Time of Disposition: 19:13 Decision Date: 07/17/21 Decision Time: 19:13
[2021-07-17 19:18] LABS: African American GFR (CKD) >90 (>60 ml/min/1.73 sqM); Anion Gap 5 mmol/L; Blood Urea Nitrogen 15 mg/dL (7-17); C Reactive Protein 2.8 mg/dL (<1.0); Calcium 8.7 mg/dL (8.4-10.2); Carbon Dioxide 31 mmol/L (22-30); Chloride 100 mmol/L (98-107); Glucose 122 mg/dL (74-99); Non-African American GFR(CKD) >90 (>60 ml/min/1.73 sqM); Sodium 136 mmol/L (137-145)
[2021-07-17 19:26] LABS: Potassium 3.9 mmol/L (3.5-5.1)
[2021-07-17] MEDS ORDERED: KETOROLAC 15 MG/ML 1 ML VIAL IVP STA (19:54)
[2021-07-17] MEDS: HYDROcodone/APAP 5-325MG 1 EACH TAB PO PRN (20:40)
[2021-07-17] MEDS: diphenhydrAMINE 25 MG CAP PO PRN (20:40)
[2021-07-17] MEDS: IBUPROFEN 600 MG TAB PO PRN (20:42)
[2021-07-17 20:47] LABS: Erythrocyte Sedimentation Rate 62 mm/hr (0-20)
--- NOTE | 2021-07-17 21:15 | HP ---
HISTORY AND PHYSICAL CHIEF COMPLAINT: Infection of the right thumb. HISTORY OF PRESENT ILLNESS: This is another admission for this 30-year-old female. She developed infection of the right thumb and went to [facility] on July 10, where she states that they opened and drained it and apparently put her on antibiotic. It then got worse, and on July 15 she went into [facility] Emergency Room, where again it was opened up and she was sent home. It has steadily gotten worse. She was seen in our office for x- rays; unremarkable except for soft tissue swelling, and a culture came back with MRSA. She does not know what antibiotic or antibiotics she has been on. REVIEW OF SYSTEMS: She has had no fever, chills, headaches, chest pain, shortness of breath, abdominal pain, urinary complaints, diabetes, etc. Past medical history, family history, and personal and social histories are otherwise unremarkable or noncontributory. She is ALLERGIC TO PENICILLIN, to which she has anaphylaxis. She is also ALLERGIC TO LEVOTHYROXINE AND CIPRO. She was recently prescribed clindamycin 300 mg 3 times a day and Vicodin, but it is getting worse. She does smoke. PHYSICAL EXAMINATION: Blood pressure 132/82, pulse 91, respirations 16 and temperature 98.2. In general she appeared to be well developed, well nourished, in no acute distress. Skin color is normal. Skin is warm and dry. Lymph nodes are not enlarged. Head, ears, eyes, nose, mouth and throat are normal. Neck veins are not distended. Thyroid is not enlarged. Chest is clear. Cardiac exam is normal. No murmurs. The abdomen is soft, nontender. Extremities are normal except for the right thumb, where she has severe cellulitis. The thumb is greatly swollen and there is subcutaneous fluid or purulence on the top of the thumb as well as on the pad. There is an area just on the right side of the thumb with there is a small amount of purulent drainage. Tip of the thumb is perfused. She cannot move the IP joint and it is extremely painful. IMPRESSION: MRSA cellulitis of the right thumb with joint space infection. Osteomyelitis to be ruled out. PLAN: 1. Bedrest. 2. IV fluids. 3. IV vancomycin. 4. Consult Orthopedic Hand Surgery and Infectious Disease. MMODL / IJN: [id number] /
[2021-07-18] MEDS: MORPHINE SULFATE 4 MG/ML SYRINGE IV PRN ×4 (00:43→19:43)
[2021-07-18] MEDS: HYDROcodone/APAP 5-325MG 1 EACH TAB PO PRN (04:21)
[2021-07-18] MEDS ORDERED: VANCOMYCIN 1,250 MG in SODIUM CHLORIDE 0.9% 250 ML IVPB SCH (06:00)
[2021-07-18] MEDS: ENOXAPARIN 40 MG/0.4 ML SYRINGE SQ SCH (09:43)
[2021-07-18] MEDS ORDERED: HYDROcodone/APAP 5-325MG 1 EACH TAB PO PRN (10:55)
[2021-07-18] MEDS: PANTOPRAZOLE 40 MG/10 ML VIAL IV SCH (11:00)
--- NOTE | 2021-07-18 11:20 | P.CNOR ---
History of Present Illness - HPI Consult date: 07/18/21 History of present illness: This patient is a 30-year-old female who is otherwise healthy who presented to [facility] emergency department yesterday with complaints of worsening right thumb infection. Patient states symptoms have been present for over a week. She states there was no injury. Patient was initially evaluated at [facility] ER over a week ago where I&D was attempted. Patient states there was no purulence expressed or cultures taken at that time. She was given a prescription for Bactrim. Patient states her pain, swelling, erythema worsened significantly, therefore she presented to [facility] ER on 07/15/21 and a repeat I&D of the right thumb was attempted. Cultures were taken at that time which are positive for MRSA. Patient was placed on Clindamycin at that time. She followed up with her PCP Dr. Gonzalez yesterday, who recommended the patient present to the hospital for IV antibiotics and consults with infectious disease and orthopedic hand surgery. Patient is currently receiving IV vancomycin. At the time of my exam, patient is complaining of isolated right thumb pain. She is currently afebrile. WBC is within normal limits. She denies chest pain, shortness of breath, nausea, vomiting, fevers, chills. Past Medical History Past Medical History: GERD/Reflux Additional Past Medical History / Comment(s): Hypothroidism, patient had benign sinus tachycardia evaluated by cardiology during past , Migraine RIVERA's History of Any Multi-Drug Resistant Organisms: MRSA Year Discovered:: 07/13/2021 MDRO Source:: R thumb Past Surgical History: Section Additional Past Surgical History / Comment(s): D-and C 2010 Past Anesthesia/Blood Transfusion Reactions: No Reported Reaction Past Psychological History: Anxiety, Depression Additional Psychological History / Comment(s): pt took medication before pregnan cy, stopped during , is seeing counselor. Dr. Jarvis aware of high PPD score, given provider list. Smoking Status: Former smoker Past Alcohol Use History: None Reported Past Drug Use History: Marijuana - Past Family History Mother Additional Family Medical History / Comment(s): Type II Diabetes Medications and Allergies Home Medications Medication Instructions Recorded Confirmed Type Clindamycin [Cleocin] 300 mg PO TID 10 Days #60 cap 07/15/21 07/17/21 Rx HYDROcodone/APAP 5-325MG [[place] 1 tab PO Q6HR PRN #12 tab 07/15/21 07/17/21 Rx 5-325] Ibuprofen [Motrin] 600 mg PO Q8HR PRN #24 tab 07/15/21 07/17/21 Rx diphenhydrAMINE [Benadryl] 25 mg PO TID PRN 07/17/21 07/17/21 History Allergies Allergy/AdvReac Type Severity Reaction Status Date / Time ciprofloxacin [From Cipro] Allergy Severe Rash/Hives Verified 07/17/21 19:32 Penicillins Allergy Severe Anaphylaxis Verified 07/17/21 19:32 Physical Examination Osteopathic Statement: *. No significant issues noted on an osteopathic structural exam other than those noted in the History and Physical/Consult. On examination, patient is sitting in bed in no acute distress. She is alert and orientated x3. A focused examination of the right thumb is conducted. On inspe ction of the right thumb, there is diffuse erythema and swelling at the dorsal thumb with superficial abscess that is currently draining. There is also swelling of the pad of the thumb. There is significant pain with attempted palpation of the distal thumb. No pain with PROM of the IP joint, MCP joint of the thumb. No pain with palpation of the remaining fingers, hand, wrist. Motor and sensory function intact right hand. The tip of the thumb is warm and well perfused with brisk capillary refill distally. Results Right hand x-ray 07/17/21: No acute fractures. No acute bony abnormalities. Soft tissue swelling over distal phalanx of the thumb. - Labs Labs: Abnormal Lab Results - Last 24 Hours (Table) 07/17/21 07/17/21 Range/Units 18:58 18:58 Plt Count 460 H (150-450) k/uL ESR 62 H (0-20) mm/hr Sodium 136 L (137-145) mmol/L Carbon Dioxide 31 H (22-30) mmol/L Glucose 122 H (74-99) mg/dL C-Reactive Protein 2.8 H (<1.0) mg/dL H & H 07/17/21 Range/Units 18:58 Hgb 12.8 (11.4-16.0) gm/dL Hct 38.2 (34.0-46.0) % Result Diagrams: 07/17/21 18:58 07/19/21 06:09 Assessment and Plan (1) Paronychia Current Visit: Yes Status: Acute Code(s): DWQ2660 - SNOMED Code(s): 19128 005 (2) Failure of outpatient treatment Current Visit: Yes Status: Acute Code(s): Z78.9 - OTHER SPECIFIED HEALTH STATUS SNOMED Code(s): 816402511 Plan: - The clinical and imaging findings were discussed with the patient. The patient was also seen and examined by our hand surgeon Dr. Mariscal. Patient's thumb is actively draining at this time, therefore recommend utilizing a heated, moist dressing. Dressing will include gauze and kerlix moistened with warm water wrapped around the thumb with plastic bag over hand. The hand should be kept elevated and covered with a heated K-pad to 107 degrees. Dressing instructions were discussed with nursing. - Continue IV antibiotics under the discretion of infectious disease. - Patient will be made NPO at midnight for possible I&D tomorrow, pending clinical improvement. - We will follow patient closely and make recommendations as needed. Pt seen and examined. She has quite the infection but the previous I&D sites are still draining nicely. This may be enough in conjunction with the IV ABX. We'll do a maceration dressing overnight and recheck in the am. If she doesn't improve much by the morning, will have a low threshold to proceed to formal I&D tomorrow.
--- NOTE | 2021-07-18 20:35 | PN ---
PROGRESS NOTE DATE OF SERVICE: 07/18/2021 CHIEF COMPLAINT: Infection of the right thumb. HISTORY OF PRESENT ILLNESS: This lady is still having quite a bit of pain. It would seem that there is slight decrease in the swelling in the thumb. PHYSICAL EXAM: Her exam is normal except for the thumb, where she still has a great deal of pain and she cannot move the IP joint. Thumb may be slightly less swollen, but still very erythematous and draining. IMPRESSION: Cellulitis of the right thumb. PLAN: Continue with IV vancomycin and await recommendations from Infectious Disease and Orthopedics. MMODL / IJN: [id number] /
[2021-07-18] MEDS: IBUPROFEN 600 MG TAB PO PRN (22:15)
[2021-07-18] MEDS: VANCOMYCIN 1,250 MG in SODIUM CHLORIDE 0.9% 250 ML IVPB SCH (22:20)
[2021-07-18] MEDS: diphenhydrAMINE 25 MG CAP PO PRN (22:32)
--- NOTE | 2021-07-19 00:05 | P.CONS ---
History of Present Illness - Reason for Consult Consult date: 07/18/21 Right thumb abscess Requesting physician: Shaji Gonzalez - Chief Complaint Right thumb pain swelling redness 1 week - History of Present Illness Patient is a 30-year-old female started having a problem with right thumb about a week ago patient denies having history of any trauma patient noticed to having swelling and redness to the right thumb nailbed area for the patient was evaluated at [facility] ER they tried to open up the area but there was no drainage patient was started on a prescription of Bactrim DS subsequently the patient has been evaluated by her primary care physician and apparently cultures has been done in the office which has been positive for MRSA patient was started on clindamycin and on a follow-up visit with the PCP patient was noticed to have a worsening swelling and redness of the right thumb for the patient was sent to the ER, patient been complaining of pain to the right thumb throbbing to dull aching intensity 7-8 out of 10 no radiation with associated swelling redness and some drainage patient on presentation to the hospital was afebrile and no fever have been recorded subsequently patient did have a normal white count with a left shift creatinine was normal blood culture obtained which are currently pending patient did have x-ray of the hand soft tissue swelling no fracture Ortho has been consulted and possible plan for drainage of this abscess in the morning Review of Systems Positive point has been mentioned in the HPI rest of the systems are negative Past Medical History Past Medical History: GERD/Reflux Additional Past Medical History / Comment(s): Hypothroidism, patient had benign sinus tachycardia evaluated by cardiology during past , Migraine RIVERA's History of Any Multi-Drug Resistant Organisms: MRSA Year Discovered:: 07/13/2021 MDRO Source:: R thumb Past Surgical History: Section Additional Past Surgical History / Comment(s): D-and C 2010 Past Anesthesia/Blood Transfusion Reactions: No Reported Reaction Past Psychological History: Anxiety, Depression Additional Psychological History / Comment(s): pt took medication before , stopped during , is seeing counselor. Dr. Jarvis aware of high PPD score, given provider list. Smoking Status: Former smoker Past Alcohol Use History: None Reported Past Drug Use History: Marijuana - Past Family History Mother Additional Family Medical History / Comment(s): Type II Diabetes Medications and Allergies Home Medications Medication Instructions Recorded Confirmed Type Clindamycin [Cleocin] 300 mg PO TID 10 Days #60 cap 07/15/21 07/17/21 Rx HYDROcodone/APAP 5-325MG [[place] 1 tab PO Q6HR PRN #12 tab 07/15/21 07/17/21 Rx 5-325] Ibuprofen [Motrin] 600 mg PO Q8HR PRN #24 tab 07/15/21 07/17/21 Rx diphenhydrAMINE [Benadryl] 25 mg PO TID PRN 07/17/21 07/17/21 History Allergies Allergy/AdvReac Type Severity Reaction Status Date / Time ciprofloxacin [From Cipro] Allergy Severe Rash/Hives Verified 07/17/21 19:32 Penicillins Allergy Severe Anaphylaxis Verified 07/17/21 19:32 Physical Exam Vitals: Vital Signs Temp Pulse Pulse Resp BP BP Pulse Ox 07/18/21 07:00 97.9 F 71 18 128/78 98 07/18/21 02:00 97.1 F L 68 16 129/86 97 07/18/21 00:47 77 22 112/78 98 07/17/21 23:00 79 20 123/69 97 07/17/21 15:57 97.8 F 95 22 131/91 100 Intake and Output 07/17/21 07/18/21 07/18/21 22:59 06:59 14:59 Other: # Voids 1 Weight 63.957 kg 63.957 kg GENERAL DESCRIPTION: Middle-aged female lying in bed, no distress. No tachypnea or accessory muscle of respiration use. HEENT: Shows Pallor , no scleral icterus. Oral mucous membrane is dry. No pharyngeal erythema or thrush NECK: Trachea central, no thyromegaly. LUNGS: Unlabored breathing. Clear to auscultation anteriorly. No wheeze or crackle. HEART: S1, S2, regular rate and rhythm. No loud murmur ABDOMEN: Soft, no tenderness , guarding or rigidity, no organomegaly EXTREMITIES: Right thumb tip with swelling and redness no foul-smelling drainage. SKIN: No rash, no masses palpable. NEUROLOGICAL: The patient is awake, alert, oriented x3, mood and affect normal. Results CBC & Chem 7: 07/17/21 18:58 07/17/21 18:58 Labs: Abnormal Lab Results - Last 24 Hours (Table) 07/17/21 07/17/21 Range/Units 18:58 18:58 Plt Count 460 H (150-450) k/uL ESR 62 H (0-20) mm/hr Sodium 136 L (137-145) mmol/L Carbon Dioxide 31 H (22-30) mmol/L Glucose 122 H (74-99) mg/dL C-Reactive Protein 2.8 H (<1.0) mg/dL Assessment and Plan (1) Cellulitis Current Visit: Yes Status: Acute Code(s): L03.90 - CELLULITIS, UNSPECIFIED SNOMED Code(s): 317875360 (2) MRSA (methicillin resistant staph aureus) culture positive Current Visit: Yes Status: Acute Code(s): Z22.322 - CARRIER OR SUSPECTED CARRIER OF METHICILLIN RESIS STAPH SNOMED Code(s): 553851795 Plan: 1patient with right thumb abscess and cellulitis failing outpatient oral Bactrim and clindamycin therapy with outpatient culture positive for MRSA x-rays were negative for any bony changes, Ortho has seen the patient and possible plan for drainage of this abscess in the OR tomorrow. 2vancomycin pharmacy to dose target trough of 15 while watching kidney fu nction and vancomycin trough closely. 3in view of extensive infection she will benefit from outpatient IV antibiotic therapy, discussed with the caseworker intake We will follow on clinical condition and cultures to further adjust medication if needed Thank you for this consultation will follow this patient along with you
[2021-07-19] MEDS: ENOXAPARIN 40 MG/0.4 ML SYRINGE SQ SCH (07:34)
[2021-07-19 07:51] LABS: African American GFR (CKD) >90 (>60 ml/min/1.73 sqM); Non-African American GFR(CKD) >90 (>60 ml/min/1.73 sqM)
[2021-07-19] MEDS: VANCOMYCIN 1,250 MG in SODIUM CHLORIDE 0.9% 250 ML IVPB SCH ×2 (10:09→20:22)
[2021-07-19] MEDS: PANTOPRAZOLE 40 MG/10 ML VIAL IV SCH (10:18)
--- NOTE | 2021-07-19 11:31 | P.PN ---
Subjective Progress Note Date: 07/19/21 Principal diagnosis: Right thumb infection. This patient is a 30-year-old female who is otherwise healthy who presented to [facility] emergency department yesterday with complaints of worsening right thumb infection. Patient states symptoms have been present for over a we ek. She states there was no injury. Patient was initially evaluated at [facility] ER over a week ago where I&D was attempted. Patient states there was no purulence expressed or cultures taken at that time. She was given a prescription for Bactrim. Patient states her pain, swelling, erythema worsened significantly, therefore she presented to [facility] ER on 07/15/21 and a repeat I&D of the right thumb was attempted. Cultures were taken at that time which are positive for MRSA. Patient was placed on Clindamycin at that time. She followed up with her PCP Dr. Gonzalez yesterday, who recommended the patient present to the hospital for IV antibiotics and consults with infectious disease and orthopedic hand surgery. Patient is currently receiving IV vancomycin. At the time of my exam, patient is complaining of isolated right thumb pain. She is currently afebrile. WBC is within normal limits. She denies chest pain, shortness of breath, nausea, vomiting, fevers, chills. 07/19/2021: Patient states that her pain is minimally improved. The moist heat pad quit working in the middle the night last night. She has no new complaints or concerns today. Vital signs are stable. Blood cultures are negative at 48 hours. Objective - Vital Signs Vital signs: Vital Signs Temp 97.8 F 07/19/21 06:44 Pulse 84 07/19/21 06:44 Resp 16 07/19/21 06:44 BP 126/85 07/19/21 06:44 Pulse Ox 97 07/19/21 06:44 Intake & Output 07/18/21 07/19/21 07/19/21 18:59 06:59 18:59 Other: # Voids 3 1 - Exam This is a pleasant 30-year-old female in no acute distress. She is alert and oriented 3. Exam of the right thumb reveals continued swelling and erythema. There is a significant amount of purulent drainage on the dressing. She has limited motion of the thumb secondary to pain and swelling. Neurovascular status to the thumb is grossly intact. - Labs CBC & Chem 7: 03/28/22 18:58 07/19/21 06:09 Labs: Abnormal Lab Results - Last 24 Hours (Table) 07/19/21 Range/Units 06:09 Creatinine 0.51 L (0.52-1.04) mg/dL Microbiology - Last 24 Hours (Table) 07/17/21 19:00 Blood Culture - Preliminary Blood No Growth after 24 hours 07/17/21 18:58 Blood Culture - Preliminary Blood No Growth after 24 hours Assessment and Plan Plan: The clinical findings are discussed with the patient and with Dr. Mariscal. It is recommended the patient be taken OR today for formal I&D of the thumb. We will continue nothing by mouth today.
[2021-07-19] MEDS: MORPHINE SULFATE 4 MG/ML SYRINGE IV PRN ×2 (13:40→23:43)
--- NOTE | 2021-07-19 15:06 | PN ---
PROGRESS NOTE CHIEF COMPLAINT: MRSA infection of the right thumb. HISTORY OF PRESENT ILLNESS: This lady's thumb is dressed and she is going down for debridement today. PHYSICAL EXAMINATION: Chest is clear. Cardiac exam is normal. The finger and the thumb is dressed. IMPRESSION: MRSA cellulitis and abscess of the right thumb. PLAN: Surgery today and continue antibiotics. MMODL / IJN: [id number] /
[2021-07-19] MEDS ORDERED: LACTATED RINGERS 1,000 ML IV ONE (16:19)
[2021-07-19] MEDS ORDERED: LIDOCAINE 1% (10MG/ML) FOR IV START INTRADERMA ONE (16:35)
[2021-07-19] MEDS ORDERED: MIDAZOLAM 2 MG/2 ML VIAL ONE (17:32)
[2021-07-19] MEDS ORDERED: KETAMINE 10 MG/ML 20 ML VIAL ONE (17:32)
[2021-07-19] MEDS ORDERED: PROPOFOL 10 MG/ML 20 ML VIAL IV ONE (17:32)
[2021-07-19] MEDS ORDERED: KETOROLAC 15 MG/ML 1 ML VIAL ONE (17:32)
[2021-07-19] MEDS ORDERED: fentaNYL (PF) 50 MCG/ML 2 ML AMP ONE (17:32)
[2021-07-19] MEDS ORDERED: BUPIVACAINE (PF) 0.5% 30 ML VIAL IO ONE (17:45)
[2021-07-19] MEDS ORDERED: LIDOCAINE 1%/EPI 1:200,000 MPF 10 ML VIAL INTRAARTIC ONE (17:45)
--- NOTE | 2021-07-19 19:15 | P.OP ---
Date of Procedure: 07/19/21 Preoperative Diagnosis: right thumb paronychia Postoperative Diagnosis: right thumb felon Procedure(s) Performed: right thumb incision and drainage Anesthesia: MAC, local Surgeon: Alma Mariscal Estimated Blood Loss (ml): 5 Condition: stable Disposition: PACU Indications for Procedure: Sylvie is a 30 year old female with a right thumb infection that has failed two ER I&D's. She was admitted yesterday for IV ABX and a maceration dressing was applied. Her thumb did not improve and the decision was made to do a formal I&D. Description of Procedure: The patient, operative extremity, and procedure were identified in the preop holding area. She was then brought back to the OR where a digital block was performed with 1% lidocaine with epinephrine and 0.5% marcaine. The extremity was then prepped and draped in normal sterile fashion. Once a formal timeout was performed, a finger tourniquet was applied with a sterile glove finger. The previous I&D incision on the ulnar side of the finger was still open and draining. A hemostat was introduced to break up any loculations. A pocket of purulence was located in the pulp of her thumb. The loculations were broken up bluntly and found to extend to the radial side of her thumb. Culture was taken. All infected and nonviable tissue was gently debrided with normal saline and a raytec sponge and the hemostat was performed to the level of the bone. About [id number] of tissue was removed. A small counter incision was made on the ulnar side of the thumb where a blister had formed. Copious kim of normal saline was used to flush the wound until it was clear of purulence. A strip of a abelardo drain was then cut and slid from the original incision through to the counter incision. One stitch was placed with a 4.0 nylon to loosely approximate the ulnar wound. The finger tourniquet was removed and the wound was dressing with adaptic, parminder wrap, and coban. Pt was aroused by the anesthesia team and brought back to PACU in stable condition.
[2021-07-19] MEDS: KETOROLAC 15 MG/ML 1 ML VIAL IVP SCH (23:44)
--- NOTE | 2021-07-20 00:05 | P.PN ---
Subjective Progress Note Date: 07/19/21 Principal diagnosis: Right thumb abscess and cellulitis Patient is a 30-year-old female started having a problem with the right thumb more than a week ago with attempted drainage in the outpatient setting and culture has been positive for MRSA admitted to the hospital with worsening infection. On today's evaluation that is a 07/19/2021, the patient denies having any fever or chills, patient gained to the right thumb is currently controlled with the pain medication, patient denies having any chest pain shortness of breath or cough no nausea no vomiting no abdominal pain or diarrhea Objective - Vital Signs Vital signs: Vital Signs Temp 97.8 F 07/19/21 06:44 Pulse 84 07/19/21 06:44 Resp 16 07/19/21 06:44 BP 126/85 07/19/21 06:44 Pulse Ox 97 07/19/21 06:44 Intake & Output 07/18/21 07/19/21 07/19/21 18:59 06:59 18:59 Other: # Voids 3 1 - Exam GENERAL DESCRIPTION: A middle-age female lying in bed in no distress RESPIRATORY SYSTEM: Unlabored breathing , decreased breath sounds at bases HEART: S1 S2 regular rate and rhythm , ABDOMEN: Soft , no tenderness EXTREMITIES: Right thumb is currently dressed no drainage on the dressing - Labs CBC & Chem 7: 07/17/21 18:58 07/19/21 06:09 Labs: Abnormal Lab Results - Last 24 Hours (Table) 07/19/21 Range/Units 06:09 Creatinine 0.51 L (0.52-1.04) mg/dL Microbiology - Last 24 Hours (Table) 07/17/21 19:00 Blood Culture - Preliminary Blood No Growth after 24 hours 07/17/21 18:58 Blood Culture - Preliminary Blood No Growth after 24 hours Assessment and Plan (1) Cellulitis Current Visit: Yes Status: Acute Code(s): L03.90 - CELLULITIS, UNSPECIFIED SNOMED Code(s): 299121341 (2) MRSA (methicillin resistant staph aureus) culture positive Current Visit: Yes Status: Acute Code(s): Z22.322 - CARRIER OR SUSPECTED CARRIER OF METHICILLIN RESIS STAPH SNOMED Code(s): 877180019 Plan: 1patient with right thumb abscess and cellulitis failing outpatient oral Ba ctrim and clindamycin therapy with outpatient culture positive for MRSA x-rays were negative for any bony changes, Ortho has seen the patient and possible plan for drainage of this abscess scheduled for later today 2patient to continue with vancomycin pharmacy to dose target trough of 15 while watching kidney function and vancomycin trough closely. 3in view of extensive infection she will benefit from outpatient IV antibiotic therapy Time with Patient: Less than 30
[2021-07-20] MEDS: MORPHINE SULFATE 4 MG/ML SYRINGE IV PRN ×2 (07:40→15:28)
[2021-07-20] MEDS ORDERED: VANCOMYCIN TROUGH DUE 1 EACH MISC MISCELLANE ONE (09:00)
[2021-07-20] MEDS: PANTOPRAZOLE 40 MG/10 ML VIAL IV SCH (09:03)
[2021-07-20] MEDS: ENOXAPARIN 40 MG/0.4 ML SYRINGE SQ SCH (09:04)
[2021-07-20] MEDS: KETOROLAC 15 MG/ML 1 ML VIAL IVP SCH ×3 (09:04→23:40)
[2021-07-20] MEDS: VANCOMYCIN 1,250 MG in SODIUM CHLORIDE 0.9% 250 ML IVPB SCH ×2 (10:18→17:30)
--- NOTE | 2021-07-20 10:28 | P.PN ---
Subjective Progress Note Date: 07/20/21 This patient is a 30- year old female who is status-post right thumb incision and drainage on 07/19/[address] Mariscal. Today is post-operative day #1. She is seen and examined bedside. Patient states her thumb does feel better today. She overall feels well with no new complaints. She denies fevers, chills, nausea, vomiting. Objective - Vital Signs Vital signs: Vital Signs Temp 97.4 F L 07/20/21 08:23 Pulse 95 07/20/21 08:23 Resp 14 07/20/21 08:23 BP 128/77 07/20/21 08:23 Pulse Ox 95 07/20/21 08:23 Intake & Output 07/19/21 07/20/21 07/20/21 18:59 06:59 18:59 Intake Total 1000 180 Output Total 5 Balance 995 180 Weight 63.957 kg Intake: IV 1000 Oral 180 Output: Estimated Blood Loss 5 Other: # Voids 3 1 - Exam On examination, patient is lying in bed in no apparent distress. She is alert and oriented 3. On inspection of the right thumb, there is a clean, dry, intact dressing in place with overlying Coban. No pain with passive [id number] of the wrists, fingers. The visible portion of the hand and fingers are warm and well perfused with brisk capillary refill distally. - Labs CBC & Chem 7: 07/17/21 18:58 07/19/21 06:09 Labs: Microbiology - Last 24 Hours (Table) 07/19/21 18:12 Gram Stain - Preliminary Finger - Right Fifth Wound Culture - Preliminary 07/19/21 18:12 Anaerobic Culture - Preliminary Finger - Right Fifth 07/17/21 19:00 Blood Culture - Preliminary Blood No Growth after 48 hours 07/17/21 18:58 Blood Culture - Preliminary Blood No Growth after 48 hours Assessment and Plan Assessment: Status-post right thumb incision and drainage. Post-operative day #1. (1) Paronychia Current Visit: Yes Status: Acute Code(s): CQV7604 - SNOMED Code(s): 80297162 (2) Failure of outpatient treatment Current Visit: Yes Status: Acute Code(s): Z78.9 - OTHER SPECIFIED HEALTH STATUS SNOMED Code(s): 640912370 Plan: - We will begin warm water soaks today for the right thumb. Half peroxide half warm water soaks of the right thumb 3 times daily. - Daily dressing changes. - Continue Toradol 15mg q8 hours for pain control. - Keep right hand elevated for swelling control. - Continue IV antibiotics under the discretion of infectious disease. Per operative findings by Dr. Mariscal, we would recommend discharge on oral antibiotics only. Although we will leave the final antibiotic choice to Dr. Whitt. - Leave right thumb drain in place. We will plan to pull bedside tomorrow. - We will follow patient closely.
[2021-07-20 11:37] LABS: African American GFR (CKD) >90 (>60 ml/min/1.73 sqM); Non-African American GFR(CKD) >90 (>60 ml/min/1.73 sqM)
[2021-07-20] MEDS: diphenhydrAMINE 25 MG CAP PO PRN (15:28)
--- NOTE | 2021-07-20 16:11 | PN ---
PROGRESS NOTE CHIEF COMPLAINT: MRSA infection of the right thumb. HISTORY OF PRESENT ILLNESS: This lady went to the operating room yesterday for extensive incision and drainage with placement of drains. She is comfortable so far today. PHYSICAL EXAMINATION: Chest is clear. Cardiac exam is normal. Abdomen is soft, nontender. The thumb is dressed. She is not febrile. IMPRESSION: MRSA cellulitis and abscesses of the right thumb. PLAN: Continue with IV vancomycin and local wound care. MMODL / IJN: [id number] /
--- NOTE | 2021-07-20 22:45 | P.PN ---
Subjective Progress Note Date: 07/20/21 Principal diagnosis: Right thumb abscess and cellulitis Patient is a 30-year-old female started having a problem with the right thumb more than a week ago with attempted drainage in the outpatient setting and culture has been positive for MRSA admitted to the hospital with worsening infection. Patient is status post drainage of the right thumb abscess by orthopedic last night On today's evaluation that is a 07/20/2021, the patient remains to be afebrile, patient pain to the right thumb is currently controlled, the patient denies having any chest pain shortness of breath or cough no nausea no vomiting no abdominal pain or diarrhea Objective - Vital Signs Vital signs: Vital Signs Temp 97.4 F L 07/20/21 08:23 Pulse 95 07/20/21 08:23 Resp 14 07/20/21 08:23 BP 128/77 07/20/21 08:23 Pulse Ox 95 07/20/21 08:23 Intake & Output 07/19/21 07/20/21 07/20/21 18:59 06:59 18:59 Intake Total 1000 180 Output Total 5 Balance 995 180 Weight 63.957 kg Intake: IV 1000 Oral 180 Output: Estimated Blood Loss 5 Other: # Voids 3 1 - Exam GENERAL DESCRIPTION: A middle-age female lying in bed in no distress RESPIRATORY SYSTEM: Unlabored breathing , decreased breath sounds at bases HEART: S1 S2 regular rate and rhythm , ABDOMEN: Soft , no tenderness EXTREMITIES: Right thumb swelling and redness is slightly decreased minimal drainage - Labs CBC & Chem 7: 07/17/21 18:58 07/20/21 09:41 Labs: Microbiology - Last 24 Hours (Table) 07/19/21 18:12 Gram Stain - Preliminary Finger - Right Fifth Wound Culture - Preliminary 07/19/21 18:12 Anaerobic Culture - Preliminary Finger - Right Fifth 07/17/21 19:00 Blood Culture - Preliminary Blood No Growth after 48 hours 07/17/21 18:58 Blood Culture - Preliminary Blood No Growth after 48 hours Assessment and Plan (1) Cellulitis Current Visit: Yes Status: Acute Code(s): L03.90 - CELLULITIS, UNSPECIFIED SNOMED Code(s): 766808639 (2) MRSA (methicillin resistant staph aureus) culture positive Current Visit: Yes Status: Acute Code(s): Z22.322 - CARRIER OR SUSPECTED CARRIER OF METHICILLIN RESIS STAPH SNOMED Code(s): 515542672 Plan: 1patient with right thumb abscess and cellulitis failing outpatient oral Bactrim and clindamycin therapy with outpatient culture positive for MRSA x-rays were negative for any bony changes, patient is status post drainage of the abscess last night and cultures are pending, per adequate drainage of the abscess and the patient can go home on oral antibiotics 2patient to continue with vancomycin pharmacy to dose target trough of 15 while watching kidney function and vancomycin trough closely. 3we will try to get culture data from her primary care physician to look at the sensitivity pattern to determine her discharge antibiotics Time with Patient: Less than 30
[2021-07-21] MEDS: VANCOMYCIN 1,250 MG in SODIUM CHLORIDE 0.9% 250 ML IVPB SCH ×2 (00:50→10:55)
[2021-07-21 08:13] VITALS: BP 106/67; PULSE 81; RESP 18; TEMP 98
[2021-07-21] MEDS: KETOROLAC 15 MG/ML 1 ML VIAL IVP SCH (09:09)
[2021-07-21] MEDS: PANTOPRAZOLE 40 MG/10 ML VIAL IV SCH (09:10)
[2021-07-21] MEDS: ENOXAPARIN 40 MG/0.4 ML SYRINGE SQ SCH (09:10)
--- NOTE | 2021-07-21 11:50 | P.PN ---
Subjective Progress Note Date: 07/21/21 Principal diagnosis: Right thumb infection. This patient is a 30-year-old female who is otherwise healthy who presented to [facility] emergency department yesterday with complaints of worsening right thumb infection. Patient states symptoms have been present for over a we ek. She states there was no injury. Patient was initially evaluated at [facility] ER over a week ago where I&D was attempted. Patient states there was no purulence expressed or cultures taken at that time. She was given a prescription for Bactrim. Patient states her pain, swelling, erythema worsened significantly, therefore she presented to [facility] ER on 07/15/21 and a repeat I&D of the right thumb was attempted. Cultures were taken at that time which are positive for MRSA. Patient was placed on Clindamycin at that time. She followed up with her PCP Dr. Gonzalez yesterday, who recommended the patient present to the hospital for IV antibiotics and consults with infectious disease and orthopedic hand surgery. Patient is currently receiving IV vancomycin. At the time of my exam, patient is complaining of isolated right thumb pain. She is currently afebrile. WBC is within normal limits. She denies chest pain, shortness of breath, nausea, vomiting, fevers, chills. 07/19/2021: Patient states that her pain is minimally improved. The moist heat pad quit working in the middle the night last night. She has no new complaints or concerns today. Vital signs are stable. Blood cultures are negative at 48 hours. 07/21/2021: Patient is doing well today. Vital signs and labs are stable. She does complain of pain about the right thumb. Objective - Vital Signs Vital signs: Vital Signs Temp 98.0 F 07/21/21 08:11 Pulse 81 07/21/21 08:11 Resp 18 07/21/21 08:11 BP 106/67 07/21/21 08:11 Pulse Ox 98 07/21/21 08:11 Intake & Output 07/20/21 07/21/21 07/21/21 18:59 06:59 18:59 Intake Total 784 118 Balance 784 118 Intake: Intake, IV Titration 250 Amount Vancomycin 1,250 mg In 250 Sodium Chloride 0.9% 250 ml @ 125 mls/hr IVPB Q8H [facility] Rx#:[id number] Oral 534 118 Other: # Voids 1 - Exam This is a pleasant 30-year-old female in no acute distress. She is alert and oriented 3. Exam of the right thumb reveals continued swelling and erythema. The Lidia drain is removed today without difficulty. Her wound appears stable. Less swelling today. Minimal active drainage. - Labs CBC & Chem 7: 07/17/21 18:58 07/20/21 09:41 Labs: Microbiology - Last 24 Hours (Table) 07/19/21 18:12 Gram Stain - Preliminary Finger - Right Fifth Wound Culture - Preliminary Presumptive MRSA 07/17/21 19:00 Blood Culture - Preliminary Blood No Growth after 72 hours 07/17/21 18:58 Blood Culture - Preliminary Blood No Growth after 72 hours Assessment and Plan (1) Failure of outpatient treatment Current Visit: Yes Status: Acute Code(s): Z78.9 - OTHER SPECIFIED HEALTH STATUS SNOMED Code(s): 937004968 (2) Paronychia Current Visit: Yes Status: Acute Code(s): MDP6748 - SNOMED Code(s): 59798574 Plan: The clinical findings are discussed with the patient and with Dr. Mariscal. She may be discharged to home today if cleared medically. Antibiotics per infectious disease. She is to follow up on Saturday for further evaluation. She may do daily dressing changes and warm soaks to the thumb.
[2021-07-21] MEDS ORDERED: SULFAMETHOX-TMP 800-160MG 1 EACH TAB PO SCH (21:00)
[2021-07-22] MEDS ORDERED: VANCOMYCIN TROUGH DUE 1 EACH MISC MISCELLANE ONE (09:00)
--- NOTE | 2021-07-22 18:39 | DS ---
DISCHARGE SUMMARY CHIEF COMPLAINT: MRSA abscess and cellulitis of the right thumb. HISTORY OF PRESENT ILLNESS AND PHYSICAL EXAMINATION: Details of this lady's history and physical can be found in the initial workup. LABORATORY STUDIES: While she was in the hospital she had laboratory studies, details of which can be found in the laboratory section of her chart. COURSE IN THE HOSPITAL: After admission she was placed on bedrest and started on intravenous fluids and vancomycin. She was seen by Orthopedics and Infectious Disease. She was taken for debridement of the thumb with drainage. Postoperatively she was doing well and it was felt that she could go home on July 21. She will go home on Bactrim DS twice a day and she will follow up in the office in one or two days. FINAL DIAGNOSIS: MRSA cellulitis and abscess of the right thumb. OPERATIONS: Incision and drainage. CONSULTATIONS: 1. Orthopedics. 2. Infectious Disease. She is improved. MMODL / SOHANN: [id number] /
== END 2021-07-21 14:38 | disposition home or self-care (01) | DRG 982 ==
LOC: EC 15:55 → 6NMEDSUR 19:13 → OBSVTOIN 07-20 08:32
PROVIDERS: ADMIT Family Medicine; ATTEND Family Medicine
PROC: 0PDR0ZZ Extraction of Right Thumb Phalanx, Open Approach (ICD-10-PCS; principal; 2021-07-19 12:30)
DX: L03.011 Cellulitis of right finger (principal); L02.511 Cutaneous abscess of right hand; Z83.3 Family history of diabetes mellitus; F17.210 Nicotine dependence, cigarettes, uncomplicated; B95.62 Methicillin resistant Staphylococcus aureus infection as the cause of diseases classified elsewhere; Z98.890 Other specified postprocedural states; K21.9 Gastro-esophageal reflux disease without esophagitis; F41.9 Anxiety disorder, unspecified; F32.A Depression, unspecified; Z79.01 Long term (current) use of anticoagulants; Z79.1 Long term (current) use of non-steroidal anti-inflammatories (NSAID); Z79.899 Other long term (current) drug therapy; Z88.1 Allergy status to other antibiotic agents; Z88.0 Allergy status to penicillin
CPT/HCPCS: 36415; 80048; 80202; 81025; 82565; 85025; 85652; 86140; 87040; 87070; 87075; 87077; 87186; 87205; 96361; 96365; 96366; 96375; 96376; 99285

== ENCOUNTER 2022-11-04 08:19 | Emergency (ER) | payer OTHER ==
[2022-11-04 08:28] VITALS: RESP 15; TEMP 97
[2022-11-04] MEDS ORDERED: SODIUM CHLORIDE 0.9% 1,000 ML IV ONE (08:39)
--- NOTE | 2022-11-04 08:53 | ED ---
General Adult HPI - General Chief complaint: Back Pain/Injury Stated complaint: L Flank Time Seen by Provider: 11/04/22 08:30 Source: patient, EMS, RN notes reviewed, old records reviewed Mode of arrival: EMS Limitations: no limitations - History of Present Illness Initial comments: This is a 32-year-old female presents emergency Department with a past medical history back in 2013 for kidney stone. Patient states about an hour prior to arrival she started having left flank pain reminiscent of kidney stone pain that she had the past. Patient states it was severe at that time however when EMS came to give her Toradol and she is much improved though she continues to have some flank pain. Patient also states she was a little nauseous earlier but no longer. Patient denies any anterior abdominal pain. Patient's chest pain or difficulty breathing. Patient denies any fever chills or cough. - Related Data Home Medications Medication Instructions Recorded Confirmed diphenhydrAMINE [Benadryl] 25 mg PO TID PRN 07/17/21 07/17/21 Previous Rx's Medication Instructions Recorded HYDROcodone/APAP 5-325MG [[place] 1 tab PO Q6HR PRN #12 tab 07/15/21 5-325] Ibuprofen [Motrin] 600 mg PO Q8HR PRN #24 tab 07/15/21 Sulfamethox-Tmp 800-160Mg [Bactrim 1 each PO BID #20 tab 07/21/21 DS 800-160 mg] Mupirocin 2% Oint [Bactroban 2% 1 applic TOPICAL TID #22 gm 11/04/22 Oint] Sulfamethox-Tmp 800-160Mg [Bactrim 1 each PO Q12HR #14 tab 11/04/22 DS 800-160 mg] Allergies Allergy/AdvReac Type Severity Reaction Status Date / Time ciprofloxacin [From Cipro] Allergy Severe Rash/Hives Verified 07/17/21 19:32 Penicillins Allergy Severe Anaphylaxis Verified 07/17/21 19:32 Review of Systems ROS Statement: Those systems with pertinent positive or pertinent negative responses have been documented in the HPI. ROS Other: All systems not noted in ROS Statement are negative. Past Medical History Past Medical History: GERD/Reflux Additional Past Medical History / Comment(s): Hypothroidism, patient had benign sinus tachycardia evaluated by cardiology during past , Migraine RIVERA's History of Any Multi-Drug Resistant Organisms: MRSA Date of last positivie culture/infection: 07/19/21 MDRO Source:: Finger Right 5th Past Surgical History: Section Additional Past Surgical History / Comment(s): D-and C 2010 Past Anesthesia/Blood Transfusion Reactions: No Reported Reaction Past Psychological History: Anxiety, Depression Smoking Status: Former smoker Past Alcohol Use History: None Reported Past Drug Use History: Marijuana - Past Family History Mother Additional Family Medical History / Comment(s): Type II Diabetes General Exam - General Exam Comments Initial Comments: GENERAL: Patient is well-developed and well-nourished. Patient is nontoxic and well- hydrated and is in mild distress. ENT: Neck is soft and supple. No significant lymphadenopathy is noted. Oropharynx is clear. Moist mucous membranes. Neck has full range of motion without eliciting any pain. EYES: The sclera were anicteric and conjunctiva were pink and moist. Extraocular movements were intact and pupils were equal round and reactive to light. Eyelids were unremarkable. PULMONARY: Unlabored respirations. Good breath sounds bilaterally. No audible rales rhonchi or wheezing was noted. CARDIOVASCULAR: There is a regular rate and rhythm without any murmurs gallops or rubs. ABDOMEN: Soft and nontender with normal bowel sounds. SKIN: Patient has a small area of excoriation on the left inner thigh consistent with a draining abscess there is a little erythema around the area. NEUROLOGIC: Patient is alert and oriented x3. Cranial nerves II through XII are grossly intact. Motor and sensory are also intact. Normal speech, volume and content. Symmetrical smile. MUSCULOSKELETAL: Normal extremities with adequate strength and full range of motion. LYMPHATICS: No significant lymphadenopathy is noted PSYCHIATRIC: Normal psychiatric evaluation. Limitations: no limitations Course Vital Signs 11/04/22 08:21 Temperature 97.0 F L Pulse Rate 88 Respiratory 15 Rate Blood Pressure 110/49 O2 Sat by Pulse 98 Oximetry Medical Decision Making - Medical Decision Making Was pt. sent in by a medical professional or institution (, PA, [employer], urgent care, hospital, or half-way...) When possible be specific @ -No Did you speak to anyone other than the patient for history (EMS, parent, family, police, friend...)? What history was obtained from this source @ -No Did you review nursing and triage notes (agree or disagree)? Why? @ -I reviewed and agree with nursing and triage notes Were old charts reviewed (outside hosp., previous admission, EMS record, old EKG, old radiological studies, urgent care reports/EKG's, half-way records)? Report findings @ -Charts apart radiological studies as well as prior lab work on the patient Differential Diagnosis (chest pain, altered mental status, abdominal pain women, abdominal pain men, vaginal bleeding, weakness, fever, dyspnea, syncope, headache, dizziness, GI bleed, back pain, seizure, CVA, palpatations, mental health, musculoskeletal)? @ -Differential Abdominal Pain Women: Appendicitis, Cholecystitis, diverticulosis, ischemic bowel, pancreatitis, hepatitis, UTI, gastroenteritis, AAA, incarcerated hernia, bowel obstruction, constipation, inflammatory bowel, hepatitis, peptic ulcer disease, splenic infarction, perforated viscus, vulvitis, ovarian torsion, PID, kidney stone, placenta abruption, this is not meant to be an all-inclusive list EKG interpreted by me (3pts min.). @ -As above X-rays interpreted by me (1pt min.). @ -None done CT interpreted by me (1pt min.). @ -None done U/S interpreted by me (1pt. min.). @ -None done What testing was considered but not performed or refused? (CT, X-rays, U/S, labs)? Why? @ -None What meds were considered but not given or refused? Why? @ -None Did you discuss the management of the patient with other professionals (ash [place] i.e. , PA, [employer], lab, RT, psych nurse, director social, experimental machining lab manager, teacher, [employer] senior officer, case filler)? Give summary @ -No Was smoking cessation discussed for >3mins.? @ -No Was critical care preformed (if so, how long)? @ -No Were there social determinants of health that impacted care today? How? (Homelessness, low income, unemployed, alcoholism, drug addiction, transportatio n, low edu. Level, literacy, decrease access to med. care, [facility], rehab)? @ -No Was there de-escalation of care discussed even if they declined (Discuss DNR or withdrawal of care, Hospice)? DNR status @ -No What co-morbidities impacted this encounter? (DM, HTN, Smoking, COPD, CAD, Cancer, CVA, ARF, Chemo, Hep., AIDS, mental health diagnosis, sleep apnea, morbid obesity)? @ -None Was patient admitted / discharged? Hospital course, mention meds given and route, prescriptions, significant lab abnormalities, going to OR and other pertinent info. @ -Patient gave us a urine sample and was told to strain her urine and kidney stone came out at that time. After that I didn't evaluate the patient she was no pain and was very comfortable patient last time had a kidney stone had an elevated white count she does again today but she also has a small area draining abscess on the inner thigh that looks a little erythematous so we will treat that with some antibiotics and some Bactroban. Undiagnosed new problem with uncertain prognosis? @ -No Drug Therapy requiring intensive monitoring for toxicity (Heparin, Nitro, Insulin, Cardizem)? @ -No Were any procedures done? @ -No Diagnosis/symptom? @ -Kidney stone Acute, or Chronic, or Acute on Chronic? @ -Acute Uncomplicated (without systemic symptoms) or Complicated (systemic symptoms)? @ -Uncomplicated Side effects of treatment? @ -No Exacerbation, Progression, or Severe Exacerbation? @ -No Poses a threat to life or bodily function? How? (Chest pain, [place], [place], pneumonia, PE, COPD, DKA, ARF, appy, cholecystitis, CVA, Diverticulitis, Homicidal, Suicidal, threat to staff... and all critical care pts) @ -No Diagnosis/symptom? @ -Abscess Acute, or Chronic, or Acute on Chronic? @ -Acute Uncomplicated (without systemic symptoms) or Complicated (systemic symptoms)? @ -Uncomplicated Side effects of treatment? @ -none Exacerbation, Progression, or Severe Exacerbation] @ -no Poses a threat to life or bodily function? @ -no - Lab Data Result diagrams: 11/04/22 09:02 11/04/22 09:02 Lab Results 11/04/22 11/04/22 11/04/22 Range/Units 08:30 09:02 09:02 WBC 20.9 H (3.8-10.6) k/uL RBC 4.69 (3.80-5.40) m/uL Hgb 14.7 (11.4-16.0) gm/dL Hct 44.2 (34.0-46.0) % MCV 94.2 (80.0-100.0) fL MCH 31.3 (25.0-35.0) pg MCHC 33.2 (31.0-37.0) g/dL RDW 12.0 (11.5-15.5) % Plt Count 481 H (150-450) k/uL MPV 7.2 Neutrophils % 91 % Lymphocytes % 5 % Monocytes % 4 % Eosinophils % 0 % Basophils % 0 % Neutrophils # 19.0 H (1.3-7.7) k/uL Lymphocytes # 1.1 (1.0-4.8) k/uL Monocytes # 0.7 (0-1.0) k/uL Eosinophils # 0.0 (0-0.7) k/uL Basophils # 0.0 (0-0.2) k/uL Sodium 138 (137-145) mmol/L Potassium 3.7 (3.5-5.1) mmol/L Chloride 100 (98-107) mmol/L Carbon Dioxide 25 (22-30) mmol/L Anion Gap 13 mmol/L BUN 13 (7-17) mg/dL Creatinine 0.57 (0.52-1.04) mg/dL Est GFR (CKD-EPI)AfAm >90 (>60 ml/min/1.73 sqM) Est GFR (CKD-EPI)NonAf >90 (>60 ml/min/1.73 sqM) Glucose 143 H (74-99) mg/dL Calcium 9.2 (8.4-10.2) mg/dL Total Bilirubin 0.6 (0.2-1.3) mg/dL AST 26 (14-36) U/L ALT 27 (4-34) U/L Alkaline Phosphatase 110 (38-126) U/L Total Protein 7.6 (6.3-8.2) g/dL Albumin 4.4 (3.5-5.0) g/dL Urine Color Yellow Urine Appearance Cloudy H (Clear) Urine pH 8.0 (5.0-8.0) Ur Specific [place] 1.014 (1.001-1.035) Urine Protein Trace H (Negative) Urine Glucose (UA) Negative (Negative) Urine Ketones Negative (Negative) Urine Blood Large H (Negative) Urine Nitrite Negative (Negative) Urine Bilirubin Negative (Negative) Urine Urobilinogen <2.0 (<2.0) mg/dL Ur Leukocyte Esterase Trace H (Negative) Urine RBC >182 H (0-5) /hpf Urine WBC 8 H (0-5) /hpf Ur Squamous Epith Cells 2 (0-4) /hpf Urine Mucus Rare H (None) /hpf Disposition Clinical Impression: Kidney stone, Abscess of thigh Disposition: HOME SELF-CARE Instructions (If sedation given, give patient instructions): Abscess (ED), Kidney Stones (ED) Prescriptions: Sulfamethox-Tmp 800-160Mg [Bactrim DS 800-160 mg] 1 each PO Q12HR #14 tab Mupirocin 2% Oint [Bactroban 2% Oint] 1 applic TOPICAL TID #22 gm Is patient prescribed a controlled substance at d/c from ED?: No Referrals: Shaji Gonzalez MD [Primary Care Provider] - 1-2 days Time of Disposition: 09:49
--- NOTE | 2022-11-04 09:03 | XR ---
KUB. HISTORY: Left-sided pain rule out kidney stone. COMPARISON: None. TECHNIQUE: 2 upright views of the abdomen were obtained. FINDINGS: The lung bases are clear. There is no free intraperitoneal air beneath the diaphragm. The bowel gas pattern is nonspecific and there is no evidence of obstruction. No suspicious abdominal or pelvic calcifications are seen. The osseous structures are intact. Note is made of an IUD device. IMPRESSION: Nonspecific abdomen without evidence of free air or obstruction.
[2022-11-04 09:08] LABS: Appearance,Urine Cloudy (Clear); Bilirubin,Urine Negative (Negative); Blood,Urine Large (Negative); Color,Urine Yellow; Glucose,Urine (UA) Negative (Negative); Ketones,Urine Negative (Negative); Leukocyte Esterase,Urine Trace (Negative); Mucus,Urine Rare /hpf; Nitrite,Urine Negative (Negative); Protein,Urine Trace (Negative); RBC,Urine >182 /hpf (0-5); Specific Gravity,Urine 1.014 (1.001-1.035); Squamous Epithelial Cell,Urine 2 /hpf (0-4); Urobilinogen,Urine <2.0 mg/dL (<2.0); WBC,Urine 8 /hpf (0-5)
[2022-11-04 09:09] LABS: Basophils % (A) 0 %; Eosinophils % (A) 0 %; HCT 44.2 % (34.0-46.0); HGB 14.7 gm/dL (11.4-16.0); Lymphocytes # (A) 1.1 k/uL (1.0-4.8); Lymphocytes % (A) 5 %; MCH 31.3 pg (25.0-35.0); MCHC 33.2 g/dL (31.0-37.0); MCV 94.2 fL (80.0-100.0); Mean Platelet Volume 7.2; Monocytes # (A) 0.7 k/uL (0-1.0); Monocytes % (A) 4 %; Neutrophils % (A) 91 %; Platelet Count 481 k/uL (150-450); RBC 4.69 m/uL (3.80-5.40); WBC 20.9 k/uL (3.8-10.6)
[2022-11-04 09:19] LABS: ALT 27 U/L (4-34); AST 26 U/L (14-36); African American GFR (CKD) >90 (>60 ml/min/1.73 sqM); Albumin 4.4 g/dL (3.5-5.0); Alkaline Phosphatase 110 U/L (38-126); Anion Gap 13 mmol/L; Blood Urea Nitrogen 13 mg/dL (7-17); Calcium 9.2 mg/dL (8.4-10.2); Carbon Dioxide 25 mmol/L (22-30); Chloride 100 mmol/L (98-107); Glucose 143 mg/dL (74-99); Non-African American GFR(CKD) >90 (>60 ml/min/1.73 sqM); Potassium 3.7 mmol/L (3.5-5.1); Sodium 138 mmol/L (137-145); Total Bilirubin 0.6 mg/dL (0.2-1.3); Total Protein 7.6 g/dL (6.3-8.2)
[2022-11-04 10:00] VITALS: BP 138/89; PULSE 111
== END 2022-11-04 09:58 | disposition home or self-care (01) ==
LOC: EC 08:19
DX: N20.0 Calculus of kidney (principal); L02.416 Cutaneous abscess of left lower limb; F41.9 Anxiety disorder, unspecified; F32.A Depression, unspecified; Z87.891 Personal history of nicotine dependence; F12.90 Cannabis use, unspecified, uncomplicated; Z88.0 Allergy status to penicillin; Z88.1 Allergy status to other antibiotic agents; Z79.899 Other long term (current) drug therapy
CPT/HCPCS: 36415; 74018; 80053; 81001; 85025; 96360; 99284

== ENCOUNTER 2023-06-05 07:52 | Emergency (ER) | payer OTHER ==
[2023-06-05] MEDS: IBUPROFEN 600 MG TAB PO STA (08:27)
--- NOTE | 2023-06-05 09:01 | ED ---
URI HPI - General Chief Complaint: Upper Respiratory Infection Stated Complaint: SOB Time Seen by Provider: 06/05/23 08:02 Source: patient, RN notes reviewed Mode of arrival: ambulatory Limitations: no limitations - History of Present Illness Initial Comments: 32-year-old female presents emergency department chief complaint of fever, chills, cough congestion and bodyaches. Symptoms started on Saturday. Patient has had multiple contacts at home with similar symptoms she did have some nausea which has resolved. Denies any localized abdominal pain has not taken any medications prior to arrival. - Related Data Home Medications Medication Instructions Recorded Confirmed diphenhydrAMINE [Benadryl] 25 mg PO TID PRN 07/17/21 07/17/21 Previous Rx's Medication Instructions Recorded HYDROcodone/APAP 5-325MG [[place] 1 tab PO Q6HR PRN #12 tab 07/15/21 5-325] Ibuprofen [Motrin] 600 mg PO Q8HR PRN #24 tab 07/15/21 Sulfamethox-Tmp 800-160Mg [Bactrim 1 each PO BID #20 tab 07/21/21 DS 800-160 mg] Mupirocin 2% Oint [Bactroban 2% 1 applic TOPICAL TID #22 gm 11/04/22 Oint] Sulfamethox-Tmp 800-160Mg [Bactrim 1 each PO Q12HR #14 tab 11/04/22 DS 800-160 mg] Allergies Allergy/AdvReac Type Severity Reaction Status Date / Time ciprofloxacin [From Cipro] Allergy Severe Rash/Hives Verified 06/05/23 08:01 Penicillins Allergy Severe Anaphylaxis Verified 06/05/23 08:01 Review of Systems ROS Statement: Those systems with pertinent positive or pertinent negative responses have been documented in the HPI. ROS Other: All systems not noted in ROS Statement are negative. Past Medical History Past Medical History: GERD/Reflux Additional Past Medical History / Comment(s): Hypothroidism, patient had benign sinus tachycardia evaluated by cardiology during past , Migraine RIVERA's History of Any Multi-Drug Resistant Organisms: MRSA Date of last positivie culture/infection: 07/19/21 MDRO Source:: Finger Right 5th Past Surgical History: Section Additional Past Surgical History / Comment(s): Dand C 2010 Past Anesthesia/Blood Transfusion Reactions: No Reported Reaction Past Psychological History: Anxiety, Depression Smoking Status: Former smoker Past Alcohol Use History: None Reported Past Drug Use History: Marijuana - Past Family History Mother Additional Family Medical History / Comment(s): Type II Diabetes General Exam Limitations: no limitations General appearance: alert, in no apparent distress Head exam: Present: atraumatic, normocephalic, normal inspection ENT exam: Present: normal exam, mucous membranes moist Neck exam: Present: normal inspection, full ROM. Absent: tenderness, meningismus, lymphadenopathy Respiratory exam: Present: normal lung sounds bilaterally. Absent: respiratory distress, wheezes, rales, rhonchi, stridor Cardiovascular Exam: Present: regular rate, normal rhythm, normal heart sounds. Absent: systolic murmur, diastolic murmur, rubs, gallop, clicks Course Vital Signs 06/05/23 06/05/23 07:57 09:45 Temperature 97.6 F 98.2 F Pulse Rate 82 75 Respiratory 16 20 Rate Blood Pressure 125/87 108/74 O2 Sat by Pulse 98 98 Oximetry Medical Decision Making - Medical Decision Making Was pt. sent in by a medical professional or institution (Dr. PA, [employer], urgent care, hospital, or fdc...) When possible be specific @ -No Did you speak to anyone other than the patient for history (EMS, parent, family, police, friend...)? What history was obtained from this source @ -No Did you review nursing and triage notes (agree or disagree)? Why? @ -I reviewed and agree with nursing and triage notes Were old charts reviewed (outside hosp., previous admission, EMS record, old EKG, old radiological studies, urgent care reports/EKG's, fdc records)? Report findings @ -No old charts were reviewed Differential Diagnosis (chest pain, altered mental status, abdominal pain women, abdominal pain men, vaginal bleeding, weakness, fever, dyspnea, syncope, headache, dizziness, GI bleed, back pain, seizure, CVA, palpatations, mental health, musculoskeletal)? @ -COVID 19, RSV, influenza, pneumonia, acute bronchitis, URI, this list is not all inclusive EKG interpreted by me (3pts min.). @ -[None X-rays interpreted by me (1pt min.). @ -None done CT interpreted by me (1pt min.). @ -None done U/S interpreted by me (1pt. min.). @ -None done What testing was considered but not performed or refused? (CT, X-rays, U/S, labs)? Why? @ -None What meds were considered but not given or refused? Why? @ -None Did you discuss the management of the patient with other professionals (professionals i.e. , PA, [employer], lab, RT, psych nurse, social service agency director, financial aid manager, teacher, jail officer, supportive employment case manager)? Give summary @ -No Was smoking cessation discussed for >3mins.? @ -No Was critical care preformed (if so, how long)? @ -No Were there social determinants of health that impacted care today? How? (Homelessness, low income, unemployed, alcoholism, drug addiction, transportation, low edu. Level, literacy, decrease access to med. care, custodial, rehab)? @ -No Was there de-escalation of care discussed even if they declined (Discuss DNR or withdrawal of care, Hospice)? DNR status @ -No What co-morbidities impacted this encounter? (DM, HTN, Smoking, COPD, CAD, Cancer, CVA, ARF, Chemo, Hep., AIDS, mental health diagnosis, sleep apnea, morbid obesity)? @ -None Was patient admitted / discharged? Hospital course, mention meds given and route, prescriptions, significant lab abnormalities, going to OR and other pertinent info. @ -[Discharge patient has influenza A will be discharged in stable condition with supportive treatment symptoms been present for more than 48 hours. Undiagnosed new problem with uncertain prognosis? @ -No Drug Therapy requiring intensive monitoring for toxicity (Heparin, Nitro, Insulin, Cardizem)? @ -No Were any procedures done? @ -No Diagnosis/symptom? @ -influenza A Acute, or Chronic, or Acute on Chronic? @ -[Acute Uncomplicated (without systemic symptoms) or Complicated (systemic symptoms)? @ -Uncomplicated Side effects of treatment? @ -[No Exacerbation, Progression, or Severe Exacerbation? @ -No Poses a threat to life or bodily function? How? (Chest pain, [place], [place], pneumonia, PE, COPD, DKA, ARF, appy, cholecystitis, CVA, Diverticulitis, Homicidal, Suicidal, threat to staff... and all critical care pts) @ -No - Lab Data Lab Results 06/05/23 Range/Units 08:28 Influenza Type A (PCR) Detected A (Not Detectd) Influenza Type B (PCR) Not Detected (Not Detectd) RSV (PCR) Not Detected (Not Detectd) SARS-CoV-2 (PCR) Not Detected (Not Detectd) Disposition Clinical Impression: Influenza A Disposition: HOME SELF-CARE Condition: Stable Instructions (If sedation given, give patient instructions): Influenza (ED) Additional Instructions: Please return to the Emergency Department if symptoms worsen or any other concerns. Is patient prescribed a controlled substance at d/c from ED?: No Referrals: None,Stated [Primary Care Provider] - 1-2 days Time of Disposition: 09:30
[2023-06-05 10:10] VITALS: BP 108/74; PULSE 75; RESP 20; TEMP 98.2
== END 2023-06-05 09:50 | disposition home or self-care (01) ==
LOC: EC 07:52
DX: J10.1 Influenza due to other identified influenza virus with other respiratory manifestations (principal); F12.90 Cannabis use, unspecified, uncomplicated; Z88.1 Allergy status to other antibiotic agents; Z88.0 Allergy status to penicillin; Z86.59 Personal history of other mental and behavioral disorders; Z87.891 Personal history of nicotine dependence; Z20.822 Contact with and (suspected) exposure to COVID-19
CPT/HCPCS: 87636; 99285

== ENCOUNTER 2024-10-15 18:38 | Emergency (ER) | payer OTHER ==
[2024-10-15 18:52] VITALS: RESP 18; TEMP 99.5
[2024-10-15 19:17] LABS: Basophils # (A) 0.07 10*3/uL (0.00-0.10); Basophils % (A) 0.8 %; Eosinophils # (A) 0.67 10*3/uL (0.04-0.35); Eosinophils % (A) 7.8 %; HCT 43.5 % (37.2-46.3); HGB 15.2 g/dL (12.0-15.0); Lymphocytes # (A) 3.28 10*3/uL (0.90-5.00); MCH 32.8 pg (27.0-32.0); MCHC 34.9 g/dL (32.0-37.0); Mean Platelet Volume 9.8 fL (9.5-12.2); Monocytes # (A) 0.49 10*3/uL (0.20-1.00); Monocytes % (A) 5.7 %; Neutrophils # (A) 4.08 10*3/uL (1.80-7.70); Neutrophils % (A) 47.2 %; Platelet Count 423 10*3/uL (140-440); RBC 4.63 10*6/uL (4.10-5.20); RDW 11.8 % (11.5-14.5); WBC 8.63 10*3/uL (4.50-10.00)
[2024-10-15 19:31] LABS: INR 0.9 (<1.2); Partial Thromboplastin Time 25.3 sec (22.0-30.0); Prothrombin Time 9.9 sec (10.0-12.5)
--- NOTE | 2024-10-15 19:37 | ED ---
Chest Pain HPI - General Source: patient, RN notes reviewed Mode of arrival: ambulatory Limitations: no limitations <Delvin Suárez - Last Filed: 10/15/24 19:36> - General Source: patient, RN notes reviewed, old records reviewed <Harlan Duque - Last Filed: 10/16/24 01:35> - General Chief Complaint: Chest Pain Stated Complaint: Chest pain,L arm numbness Time Seen by Provider: 10/15/24 18:57 - History of Present Illness Initial Comments: Quick note: This is a 34-year-old female presenting with mother for left upper chest pain since 1649 today. Patient describes pain as tightness that worsens with movement. Patient endorses associated sweating and shortness of breath. There endorses recent CABG but denies cardiac history at the patient's current age. Patient denies fever, chills, dizziness, cough, pain with inspiration, abdominal pain, N/V/D. (Delvin Suárez) Patient is a 34-year-old female presents emergency department complaining of chest wall pain and left shoulder pain. Has noticed that before today but was worse today starting at 1650. States it is worse with certain movements of the left shoulder. Stated located over the left pectoral muscle as well as into the left shoulder. Denies any diaphoresis or shortness of breath for me other than the pain. Has a family history of cardiac issues including CABG however no history of cardiac issues for the patient. Denies shortness of breath or nausea or vomiting. Denies diarrhea. Denies any obvious injury. Presents for further evaluation at this time. Has been having a nonproductive cough that is worsened over the last week as well. Symptoms are worse with movements of the left arm.States she feels like she gets some numbness shooting down from her left shoulder as well. Somewhat worse with certain movements of her neck. (Harlan Duque) - Related Data Home Medications Medication Instructions Recorded Confirmed diphenhydrAMINE [Benadryl] 25 mg PO TID PRN 07/17/21 07/17/21 Previous Rx's Medication Instructions Recorded HYDROcodone/APAP 5-325MG [[facility] 1 tab PO Q6HR PRN #12 tab 07/15/21 5-325] Ibuprofen [Motrin] 600 mg PO Q8HR PRN #24 tab 07/15/21 Sulfamethox-Tmp 800-160Mg [Bactrim 1 each PO BID #20 tab 07/21/21 DS 800-160 mg] Mupirocin 2% Oint [Bactroban 2% 1 applic TOPICAL TID #22 gm 11/04/22 Oint] Sulfamethox-Tmp 800-160Mg [Bactrim 1 each PO Q12HR #14 tab 11/04/22 DS 800-160 mg] Azithromycin [Zithromax] 250 mg PO DAILY 4 Days #4 tab 10/15/24 predniSONE [Deltasone] 40 mg PO DAILY 4 Days #8 tab 10/15/24 Allergies Allergy/AdvReac Type Severity Reaction Status Date / Time ciprofloxacin [From Cipro] Allergy Severe Rash/Hives Verified 10/15/24 18:49 Penicillins Allergy Severe Anaphylaxis Verified 10/15/24 18:49 Review of Systems ROS Other: All systems not noted in ROS Statement are negative. <Delvin Suárez - Last Filed: 10/15/24 19:36> ROS Other: All systems not noted in ROS Statement are negative. <Harlan Duque - Last Filed: 10/16/24 01:35> ROS Statement: Those systems with pertinent positive or pertinent negative responses have been documented in the HPI. Review of Systems: CONST: Denies fever EYES: Denies blurry vision ENT: Denies nasal congestion C/V: Denies Chest pain RESP: Denies shortness of breath GI: Denies abdominal pain : Denies dysuria SKIN: Denies rash. MSK: Endorses left shoulder pain NEURO: Denies headache (Harlan Duque) EKG Findings - EKG Comments: EKG Findings:: 12-lead Electrocardiogram Interpretation Note. EKG was reviewed and interpreted by myself. 12-lead ECG performed at 1906 is interpreted by me as revealing normal sinus rhythm at a rate of 84 beats per minute. Maud is normal. ID interval is 141 ms, QRS duration is 87 ms, QTc is 3 to 91 ms.. There were no ST or T wave abnormalities to suggest myocardial ischemia or injury. R wave progression across the precordium was satisfactory. By my interpretation this EKG is non-diagnostic for acute ischemia. - EKG Results: EKG: interpreted by ERMD <Harlan Duque - Last Filed: 10/16/24 01:35> Past Medical History Past Medical History: GERD/Reflux, Thyroid Disorder Additional Past Medical History / Comment(s): Hypothroidism, patient had benign sinus tachycardia evaluated by cardiology during past , Migraine RIVERA's History of Any Multi-Drug Resistant Organisms: MRSA Date of last positivie culture/infection: 07/19/21 MDRO Source:: Finger Right 5th Past Surgical History: Section Additional Past Surgical History / Comment(s): D-and C 2010 Past Anesthesia/Blood Transfusion Reactions: No Reported Reaction Past Psychological History: Anxiety, Depression Smoking Status: Former smoker Past Alcohol Use History: None Reported Past Drug Use History: Marijuana - Past Family History Mother Additional Family Medical History / Comment(s): Type II Diabetes <Delvin Suárez - Last Filed: 10/15/24 19:36> General Exam Limitations: no limitations <Delvin Suárez - Last Filed: 10/15/24 19:36> <Harlan Duque - Last Filed: 10/16/24 01:35> - General Exam Comments Initial Comments: Visual Physical Exam Vital signs reviewed General: Well-appearing, nontoxic, no acute distress. Head: Normocephalic, atraumatic Eyes: PERRLA, EOMI ENT: Airway patent Chest: Nonlabored breathing Skin: No visual rash, normal skin tone Neuro: Alert and oriented 3 Musculoskeletal: No gross abnormalities (Delvin Suárez) General: Appears in no acute distress. HEAD: Normal with no signs of head trauma. EYES: EOMI ENT: Hearing grossly intact, normal oropharynx. RESPIRATORY: Clear breath sounds bilaterally. No wheezes, rales, or rhonchi. C/V: Regular rate and rhythm. S1 and S2 auscultated, no edema, peripheral pulses 2+ and intact throughout ABD: Abd is soft, nontender, nondistended EXT: Normal range of motion, no obvious deformity. Tenderness to palpation over the left pectoral muscle as well as the general shoulder region. Worse with movements especially abduction of the shoulder, as well as movement above 90 degrees. Seems to radiate into the trapezius muscle on the left. Worse with movements of the neck as well. SKIN: No rashes or lesions observed on exposed skin. NEURO: Alert and oriented x 4. Cranial nerves II-XII intact. No focal sensory or strength deficits. No focal deficits present. (Harlan Duque) Course Vital Signs 10/15/24 10/15/24 18:50 22:19 Temperature 99.5 F Pulse Rate 75 82 Respiratory 18 18 Rate Blood Pressure 139/91 148/84 O2 Sat by Pulse 98 95 Oximetry Chest Pain MDM <Delvin Suárez - Last Filed: 10/15/24 19:36> <Harlan Duque - Last Filed: 10/16/24 01:35> - MDM I completed the quick note portion of this chart signed BINU Chris (Delvin Suárez) Was pt. sent in by a medical professional or institution (, PA, FORMULA CLERK, urgent care, hospital, or assisted...) When possible be specific @ -No Did you speak to anyone other than the patient for history (EMS, parent, family, police, friend...)? What history was obtained from this source @ -No Did you review nursing and triage notes (agree or disagree)? Why? @ -I reviewed and agree with nursing and triage notes Were old charts reviewed (outside hosp., previous admission, EMS record, old EKG, old radiological studies, urgent care reports/EKG's, assisted records)? Report findings @ -No old charts were reviewed Differential Diagnosis (chest pain, altered mental status, abdominal pain women, abdominal pain men, vaginal bleeding, weakness, fever, dyspnea, syncope, headache, dizziness, GI bleed, back pain, seizure, CVA, palpatations, mental health, musculoskeletal)? @ -Differential Chest Pain: Stable Angina, Unstable Angina, STEMI, NSTEMI Aortic Dissection, Pneumothorax, Musculoskeletal, Esophageal Spasm GERD, Cholecystitis, Pancreatitis, Zoster, this is not meant to be an all-inclusive list. EKG interpreted by me (3pts min.). @ -As above X-rays interpreted by me (1pt min.). @ -Chest x-ray reveals concerning findings for pneumonia in the right lung. CT interpreted by me (1pt min.). @ -None done U/S interpreted by me (1pt. min.). @ -None done What testing was considered but not performed or refused? (CT, X-rays, U/S, labs)? Why? @ -None What meds were considered but not given or refused? Why? @ -None Did you discuss the management of the patient with other professionals (professionals i.e. , MARISSA, FORMULA CLERK, lab, RT, psych nurse, social service director, die hardener, teacher, special service officer, case supervisor)? Give summary @ -No Was smoking cessation discussed for >3mins.? @ -No Was critical care preformed (if so, how long)? @ -No Were there social determinants of health that impacted care today? How? (Homelessness, low income, unemployed, alcoholism, drug addiction, transportation, low edu. Level, literacy, decrease access to med. care, fci, rehab)? @ -No Was there de-escalation of care discussed even if they declined (Discuss DNR or withdrawal of care, Hospice)? DNR status @ -No What co-morbidities impacted this encounter? (DM, HTN, Smoking, COPD, CAD, Cancer, CVA, ARF, Chemo, Hep., AIDS, mental health diagnosis, sleep apnea, morbid obesity)? @ -None Was patient admitted / discharged? Hospital course, mention meds given and route, prescriptions, significant lab abnormalities, going to OR and other pertinent info. @ -Based on patient's presentation and physical exam, presents more for the chest wall pain and left shoulder musculoskeletal pain. Does not seem cardiac in nature. Workup started as a quick note in triage. I evaluated the patient after workup was completed. EKG unremarkable. Chest x-ray shows right-sided pneumonia. Labs remarkable for an undetectable troponin, undetectable D-dimer. Remainder the labs unremarkable. Vitals are within acceptable limits. I discussed results with the patient. She expresses understanding that with the symptoms being more reproducible on palpation, with movements of the left shoulder as well as neck, likely related to possible nerve impingement versus musculoskeletal issue. She was in agreement this assessment. Heart score is low and therefore I believe it is safer to be discharged home. I will treat the patient with oral prednisone for home and given a dose here. As for her pneumonia she is symptomatic we will cover with azithromycin and she will be given a dose prior to discharge as well as prescription. Patient was in agreement this plan. Strict return precautions discussed. I will provide the patient with a prescription for azithromycin, prednisone. I instructed the patient to follow up with their PCP in the next 1-3 days.. I explained that the patient should return to the emergency department if they experience any worsening symptoms. Strict return precautions were discussed with the patient. The patient expressed understanding of these instructions. I answered all questions that the patient had. The patient was discharged home in good condition with their prescriptions and follow up information. Undiagnosed new problem with uncertain prognosis? @ -No Drug Therapy requiring intensive monitoring for toxicity (Heparin, Nitro, Insulin, Cardizem)? @ -No Were any procedures done? @ -No Diagnosis/symptom? @ -Chest wall pain, pneumonia, left shoulder strain Acute, or Chronic, or Acute on Chronic? @ -Acute Uncomplicated (without systemic symptoms) or Complicated (systemic symptoms)? @ -Complicated Side effects of treatment? @ -No Exacerbation, Progression, or Severe Exacerbation? @ -No Poses a threat to life or bodily function? How? (Chest pain, [place], [place], pneumonia, PE, COPD, DKA, ARF, appy, cholecystitis, CVA, Diverticulitis, Homicidal, Suicidal, threat to staff... and all critical care pts) @ -Unlikely at this time (Harlan Duque) Disposition <Delvin Suárez - Last Filed: 10/15/24 19:36> Is patient prescribed a controlled substance at d/c from ED?: No Time of Disposition: 22:15 <Harlan Duque - Last Filed: 10/16/24 01:35> Clinical Impression: Sprain of left shoulder, Pneumonia, Chest wall pain Disposition: HOME SELF-CARE Condition: Good Instructions (If sedation given, give patient instructions): Community Acquired Pneumonia (ED), Shoulder Sprain (ED), Cervical Radiculopathy (ED) Prescriptions: predniSONE [Deltasone] 40 mg PO DAILY 4 Days #8 tab Azithromycin [Zithromax] 250 mg PO DAILY 4 Days #4 tab Referrals: London Rachel Jr, DO [Primary Care Provider] - 1-2 days
[2024-10-15 19:38] LABS: ALT 28 U/L (4-34); AST 34 U/L (14-36); African American GFR (CKD) >90 (>60 ml/min/1.73 sqM); Albumin 4.9 g/dL (3.5-5.0); Alkaline Phosphatase 96 U/L (38-126); Anion Gap 10 mmol/L; Blood Urea Nitrogen 10 mg/dL (7-17); Calcium 9.7 mg/dL (8.4-10.2); Carbon Dioxide 26 mmol/L (22-30); Chloride 104 mmol/L (98-107); Glucose 115 mg/dL (74-99); Non-African American GFR(CKD) >90 (>60 ml/min/1.73 sqM); Potassium 4.4 mmol/L (3.5-5.1); Sodium 140 mmol/L (137-145); Total Bilirubin 0.9 mg/dL (0.2-1.3); Total Protein 7.9 g/dL (6.3-8.2)
--- NOTE | 2024-10-15 20:22 | XR ---
EXAMINATION TYPE: XR chest 2V DATE OF EXAM: 10/15/2024 8:12 PM CLINICAL INDICATION:Female, 34 years old with history of Chest Pain; [facility] COMPARISON: Chest radiographs from 02/22/2016. TECHNIQUE: XR chest 2V Frontal view of the chest. FINDINGS: Lungs/Pleura: Subtle hazy and patchy airspace opacification is noted in the right mid and lower lung. No pleural effusion or pneumothorax. Pulmonary vascularity: Unremarkable. Heart/mediastinum: Cardiomediastinal silhouette is unremarkable. Musculoskeletal: No acute osseous pathology. IMPRESSION: Subtle hazy and patchy airspace disease in the right mid and lower lung is concerning for an acute in fectious/inflammatory process. [facility], , 10/15/2024 8:20 PM
[2024-10-15 22:28] VITALS: BP 148/84; PULSE 82
[2024-10-15] MEDS: IBUPROFEN 800 MG TAB PO STA (22:29)
[2024-10-15] MEDS: AZITHROMYCIN 500 MG TAB PO STA (22:29)
[2024-10-15] MEDS: predniSONE 20 MG TAB PO STA (22:30)
== END 2024-10-15 22:33 | disposition home or self-care (01) ==
LOC: EC 18:38
DX: S43.402A Unspecified sprain of left shoulder joint, initial encounter (principal); S46.912A Strain of unspecified muscle, fascia and tendon at shoulder and upper arm level, left arm, initial encounter; J18.9 Pneumonia, unspecified organism; Z88.0 Allergy status to penicillin; Z88.1 Allergy status to other antibiotic agents; Z87.891 Personal history of nicotine dependence
CPT/HCPCS: 36415; 93005; 85379; 80053; 83735; 84484; 85025; 85610; 85730; 71046; 99285; J7512